=== PATIENT | female | born 1960 | race Two or more races ===

== ENCOUNTER 2020-12-03 10:59 | Outpatient (REF) | payer OTHER, SELFPAY ==
[2020-12-03 11:19] LABS: COVID-19 Test Negative (Negative)
== END 2020-12-03 11:00 | disposition home or self-care (01) ==
LOC: HO.LAB 10:59
PROVIDERS: Visit Provider Internal Medicine
DX: Z20.822 Contact with and (suspected) exposure to COVID-19 (principal)
CPT/HCPCS: 36415; 87635; C9803

== ENCOUNTER 2021-01-15 10:30 | Outpatient (REF) | payer OTHER, SELFPAY ==
--- NOTE | ~2021-01-15 | MM_ITS ---
EXAMINATION: MM SCREENING DIGITAL BREAST TOMOSYNTHESIS, BILATERAL CLINICAL INFORMATION: Screening. Asymptomatic. The lifetime risk of breast cancer based on the Tyrer-Cuzick Model is 5.4%. COMPARISON: Mammography: May 08, 2018 and studies dating back to September 27, 2012 TECHNIQUE: Digital breast tomosynthesis is performed in both the craniocaudal and mediolateral oblique views along with computer-aided detection (CAD). Synthesized 2D images are generated from the tomosynthesis. FINDINGS: The breasts are extremely dense, which lowers the sensitivity of mammography (ACR BI-RADS breast composition Category d). There are no significant masses, abnormal calcifications, or other abnormalities. MM/MM tomosynthesis screening BI IMPRESSION: There are no significant changes from prior study. ASSESSMENT: BI-RADS 1: Negative RECOMMENDATION: Routine annual mammography screening. This patient's information was entered into a reminder system with a target due date for their next mammogram.
== END 2021-01-15 10:31 | disposition home or self-care (01) ==
LOC: HO.MAMMO 10:30
PROVIDERS: Visit Provider Internal Medicine
DX: Z12.31 Encounter for screening mammogram for malignant neoplasm of breast (principal)
CPT/HCPCS: 77063; 77067

== ENCOUNTER 2021-03-06 09:40 | Outpatient (REF) | payer OTHER, SELFPAY ==
[2021-03-06 10:41] LABS: MANUAL DIFF FLAG NO
[2021-03-06 10:47] LABS: Basophils Percent Auto 0.5 % (0-2); Eosinophils Percent Auto 0.6 % (0-4); Hematocrit 39.2 % (37-47); Hemoglobin 12.8 g/dl (12.0-16.0); Imm Gran Abs Auto 0.01 X10*3/uL (0.00-0.03); Imm Gran Pct Auto 0.2 % (0.0-0.4); Lymphocytes Absolute Auto 2.8 X10*3/uL (1.2-4.9); Lymphocytes Percent Auto 43.6 % (20-40); Mean Corpuscular HGB Conc 32.7 g/dl (31.0-35.0); Mean Corpuscular Hemoglobin 27.3 pg (27.0-33.0); Mean Corpuscular Volume 83.6 fL (80-98); Mean Platelet Volume 9.3 fL (9.4-12.3); Monocytes Absolute Auto 0.5 X10*3/uL (0.1-1.2); Monocytes Percent Auto 8.5 % (2-11); Neutrophils Percent Auto 46.6 % (45-73); Platelet Count 244 X10*3/uL (160-400); Red Blood Count 4.69 X10*6/uL (4.20-5.50); Red Cell Distribution Width 13.2 % (11.0-16.0); White Blood Count 6.4 X10*3/uL (4.8-10.8)
[2021-03-06 11:11] LABS: Alanine Aminotransferase 16 U/L (0-31); Albumin Level 4.1 g/dL (3.5-5.0); Alkaline Phosphatase 83 U/L (39-117); Anion Gap 12 (12-20); Aspartate Amino Transferase 14 U/L (5-31); Bilirubin Total 0.4 mg/dL (0.0-1.0); Blood Urea Nitrogen 11 mg/dL (9-16); Calcium 9.3 mg/dL (8.4-10.2); Carbon Dioxide 26 mmol/L (22-29); Chloride 108 mmol/L (96-108); Cholesterol 227 mg/dL; Estimated Glomerular Filt Rate > 60; Glucose Fasting 84 mg/dL (60-99); HDL Cholesterol 69 mg/dL; LDL Cholesterol Calculated 147 mg/dl; Potassium 4.1 mmol/L (3.3-5.1); Sodium 142 mmol/L (135-145); Total Protein 6.8 g/dL (6.5-8.0); Triglycerides 56 mg/dL
[2021-03-10 12:56] LABS: Vitamin D 25-OH, D2 <4 ng/mL; Vitamin D 25-OH, D3 17 ng/mL; Vitamin D 25-OH, Total 17 ng/mL (30-100)
== END 2021-03-06 09:41 | disposition home or self-care (01) ==
LOC: HO.LAB 09:40
PROVIDERS: PCP Internal Medicine; Visit Provider Internal Medicine
DX: D64.9 Anemia, unspecified (principal); K21.9 Gastro-esophageal reflux disease without esophagitis; E66.3 Overweight; E78.5 Hyperlipidemia, unspecified; E55.9 Vitamin D deficiency, unspecified
CPT/HCPCS: 36415; 80053; 80061; 82306; 85025

== ENCOUNTER 2021-03-11 13:00 | Outpatient (RCR) | payer OTHER, SELFPAY ==
--- NOTE | 2021-03-11 13:33 | MHC.OT.DC ---
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 Pt continues to avoid heavy lifting , pushing ect. Her Quick DASH score is 22 pts. She is indep with her HEP. Goals at met Electronically Signed By: Vivian Scruggs OT CHT CLT Reviewed/agree with student documentation: N/A Therapist: Please Sign and return to therapist, thank you for your referral.
== END 2021-03-11 13:34 | disposition other institution (70) ==
LOC: HO.OT 13:00
PROVIDERS: PCP Internal Medicine; Visit Provider Nurse Practitioner Family
DX: G56.01 Carpal tunnel syndrome, right upper limb (principal)
CPT/HCPCS: 97110; 97165

== ENCOUNTER 2021-08-19 10:26 | Outpatient (REF) | payer OTHER, SELFPAY ==
[2021-08-19 14:24] LABS: Influenza A PCR NEGATIVE (Negative); Influenza B PCR NEGATIVE (Negative); Resp Syncy Virus RNA Qual PCR NEGATIVE (Negative); SARS COV2 PCR INHOUSE NEGATIVE (Negative)
== END 2021-08-19 10:27 | disposition home or self-care (01) ==
LOC: HO.LAB 10:26
PROVIDERS: Internal Medicine; Visit Provider Internal Medicine
DX: Z20.822 Contact with and (suspected) exposure to COVID-19 (principal); R09.89 Other specified symptoms and signs involving the circulatory and respiratory systems
CPT/HCPCS: 0241U

== ENCOUNTER 2021-09-11 15:03 | Outpatient (REF) | payer OTHER, SELFPAY ==
[2021-09-11 15:35] LABS: COVID-19 Test Negative (Negative)
== END 2021-09-11 15:04 | disposition home or self-care (01) ==
LOC: HO.LAB 15:03
PROVIDERS: Visit Provider Internal Medicine
DX: Z20.822 Contact with and (suspected) exposure to COVID-19 (principal)
CPT/HCPCS: 87635; C9803

== ENCOUNTER 2022-04-16 09:57 | Outpatient (REF) | payer OTHER, SELFPAY ==
--- NOTE | ~2022-04-16 | MM_ITS ---
EXAMINATION: BONE DENSITOMETRY CLINICAL INDICATION: Other specified disorders of bone density and structure, unspecified. COMPARISON: Baseline BD dated 01/02/2016. TECHNIQUE: Using a GIL[employer]PI DXA System (software version: 13.1) manufactured by [employer], dual-energy x-ray absorptiometry was performed of the lumbar spine and left hip. The images are of good technical quality. Summary results are attached. FINDINGS: AP SPINE L1-L4: Current: BMD 0.934 g/cm2, Z-score -1.0, T-score -2.1, osteopenia, 2.7% decrease from baseline (<5% change is not significant). Baseline: BMD 0.960 g/cm2. LEFT FEMUR, NECK: Current: BMD 0.817 g/cm2, Z-score -0.5, T-score -1.6, osteopenia. Baseline: BMD 0.892 g/cm2. LEFT FEMUR, TOTAL: Current: BMD 0.831 g/cm2, Z-score -0.6, T-score -1.4, osteopenia, 5.7% decrease from baseline (<5% change is not significant). Baseline: BMD 0.881 g/cm2. IDENTIFIED RISK FACTORS: Low calcium intake, menopause. HISTORY OF FRACTURE: None listed. MEDICATIONS: Vitamin D. MM/XR DEXA axial skeleton IMPRESSION: 1. DIAGNOSIS: Osteopenia based on the lowest T-score value of -2.1 in the lumbar spine applying World Health Organization criteria. 2. 10-YEAR FRACTURE RISK PREDICTION, FRAX: Major osteoporotic fracture (clinical spine, forearm, hip or shoulder) 4.6%. Hip fracture 0.4%. 3. Treatment Recommendations: NOF guidelines recommend consideration for treatment in postmenopausal women and men age 50 and older presenting with the following: -A hip or vertebral (clinical or morphometric) fracture. -T-score less than or equal to -2.5 at the femoral neck or spine after appropriate evaluation to exclude secondary causes. -Low bone mass at the hip or spine and a 10-year fracture probability by FRAX of greater than or equal to 3% for hip fracture or greater than or equal to 20% for major osteoporotic fracture based on the [place] adapted WHO algorithm. 4. Other Recommendations: All treatment decisions require clinical judgment and consideration of individual patient factors, including patient preferences, comorbidities, previous drug use, risk factors not captured in the FRAX model (e.g. frailty, falls, vitamin D deficiency, increased bone turnover, interval significant decline in bone density) and possible under or overestimation of fracture risk by FRAX. Additional medical evaluation for secondary cause of low bone mineral density may be appropriate. FUTURE SCAN RECOMMENDATION: People with diagnosed cases of osteoporosis or at high risk for fracture should have regular bone mineral density tests. For patients eligible for Medicare, routine testing is allowed once every 2 years. The testing frequency can be increased to one year for patients who have rapidly progressing disease, those who are receiving or discontinuing medical therapy to restore bone mass, or have additional risk factors.
--- NOTE | ~2022-04-16 | MM_ITS ---
EXAMINATION: MM SCREENING DIGITAL BREAST TOMOSYNTHESIS, BILATERAL CLINICAL INFORMATION: Screening. Asymptomatic. The lifetime risk of breast cancer based on the Tyrer-Cuzick Model is 6%. COMPARISON: Mammography: 01/15/2021, 05/08/2018, 01/02/2016 TECHNIQUE: Digital breast tomosynthesis is performed in both the craniocaudal and mediolateral oblique views along with computer-aided detection (CAD). Synthesized 2D images are generated from the tomosynthesis. FINDINGS: The breasts are heterogeneously dense, which may obscure small masses (ACR BI-RADS breast composition Category c). There is fibronodular parenchymal pattern similar to prior studies. No developing density or interval mass or architectural abnormality. No abnormal calcifications. The axilla and skin contours are unremarkable. No significant changes. MM/MM tomosynthesis screening BI IMPRESSION: No significant changes from prior exams. ASSESSMENT: BI-RADS 2: Benign RECOMMENDATION: Routine annual mammography screening. This patient's information was entered into a reminder system with a target due date for their next mammogram.
== END 2022-04-16 09:58 | disposition home or self-care (01) ==
LOC: HO.MAMMO 09:57
PROVIDERS: PCP Internal Medicine; Visit Provider Internal Medicine
DX: Z12.31 Encounter for screening mammogram for malignant neoplasm of breast (principal); Z13.820 Encounter for screening for osteoporosis; Z78.0 Asymptomatic menopausal state; M85.80 Other specified disorders of bone density and structure, unspecified site
CPT/HCPCS: 77063; 77067; 77080

== ENCOUNTER 2022-04-23 09:00 | Outpatient (REF) | payer OTHER, SELFPAY ==
--- NOTE | ~2022-04-23 | XR_ITS ---
EXAMINATION: XR LUMBOSACRAL SPINE CLINICAL INFORMATION: M54.50 - Low back pain, unspecified COMPARISON: CT abdomen and pelvis 03/19/2016. Bone densitometry 01/02/2016. TECHNIQUE: Three views of the lumbosacral spine. FINDINGS: There is normal lumbar segmentation with 5 nonrib-bearing lumbar vertebrae of normal height and normal lumbar lordosis. Decreased bony mineralization is suggested as also noted on bone densitometry 2016. There is no lumbar vertebral compression, spondylolisthesis, focal disc narrowing, erosive changes. No destructive process. The SI joints and visualized sacrum are unremarkable. XR/XR lumbar spine 2-3V IMPRESSION: -No vertebral compression, spondylolisthesis, disc narrowing, destructive process. -Decreased bony mineralization consistent with prior bone densitometry.
--- NOTE | 2022-04-23 09:18 | ECG_ITS ---
Test Reason : cp Blood Pressure : / mmHG Vent. Rate : 072 BPM Atrial Rate : 072 BPM P-R Int : 142 ms QRS Dur : 068 ms QT Int : 380 ms P-R-T Axes : 061 035 051 degrees QTc Int : 416 ms Normal sinus rhythm Nonspecific T wave abnormality Abnormal ECG When compared with ECG of 13-MAR-2016 15:55, Nonspecific T wave abnormality now evident in Lateral leads QT has shortened Referred By: Brenda Street Electronically Signed By:RADHA STEWART
[2022-04-23 10:28] LABS: Alanine Aminotransferase 33 U/L (0-31); Albumin Level 4.1 g/dL (3.5-5.0); Alkaline Phosphatase 91 U/L (39-117); Anion Gap 14 (12-20); Aspartate Amino Transferase 20 U/L (5-31); Bilirubin Total 0.4 mg/dL (0.0-1.0); Blood Urea Nitrogen 10 mg/dL (9-16); Calcium 9.2 mg/dL (8.4-10.2); Carbon Dioxide 26 mmol/L (22-29); Chloride 106 mmol/L (96-108); Cholesterol 223 mg/dL; Estimated Glomerular Filt Rate > 60; Glucose Fasting 102 mg/dL (60-99); HDL Cholesterol 56 mg/dL; LDL Cholesterol Calculated 143 mg/dl; Potassium 4.4 mmol/L (3.3-5.1); Sodium 142 mmol/L (135-145); Total Protein 7.2 g/dL (6.5-8.0); Triglycerides 124 mg/dL
[2022-04-23 10:49] LABS: Vitamin D 25-OH Total 20.8 ng/mL (>30)
== END 2022-04-23 09:01 | disposition home or self-care (01) ==
LOC: HO.LAB 09:00
PROVIDERS: PCP Internal Medicine; Visit Provider Internal Medicine
DX: Z00.00 Encounter for general adult medical examination without abnormal findings (principal); R07.9 Chest pain, unspecified; E55.9 Vitamin D deficiency, unspecified; M54.50 Low back pain, unspecified
CPT/HCPCS: 36415; 72100; 80053; 80061; 82306; 93005

== ENCOUNTER → 2022-09-07 12:22 | Outpatient (BNVA) | payer OTHER, SELFPAY | PROVIDERS: PCP Internal Medicine; Referring Provider Internal Medicine; Visit Provider Internal Medicine | DX: R94.31 Abnormal electrocardiogram [ECG] [EKG] (principal) | CPT/HCPCS: 93005 ==

== ENCOUNTER 2023-03-30 09:26 | Outpatient (REF) | payer OTHER, SELFPAY ==
[2023-03-30 09:42] LABS: MANUAL DIFF FLAG NO
[2023-03-30 10:03] LABS: Basophils Percent Auto 0.7 % (0-2); Eosinophils Absolute Auto 0.1 X10*3/uL (0.0-0.4); Eosinophils Percent Auto 1.1 % (0-4); Hematocrit 41.6 % (37.0-47.0); Hemoglobin 13.6 g/dl (12.0-16.0); Imm Gran Abs Auto 0.01 X10*3/uL (0.00-0.03); Imm Gran Pct Auto 0.2 % (0.0-0.4); Lymphocytes Absolute Auto 2.6 X10*3/uL (1.2-4.9); Lymphocytes Percent Auto 46.2 % (20-40); Mean Corpuscular HGB Conc 32.7 g/dl (31.0-35.0); Mean Corpuscular Hemoglobin 27.3 pg (27.0-33.0); Mean Corpuscular Volume 83.4 fL (80.0-98.0); Mean Platelet Volume 9.9 fL (9.4-12.3); Monocytes Absolute Auto 0.5 X10*3/uL (0.1-1.2); Monocytes Percent Auto 8.2 % (2-11); Neutrophils Absolute Auto 2.4 x10*3/uL (2.0-8.3); Neutrophils Percent Auto 43.6 % (45-73); Platelet Count 267 X10*3/uL (160-400); Red Blood Count 4.99 X10*6/uL (4.20-5.50); Red Cell Distribution Width 12.9 % (11.0-16.0); White Blood Count 5.5 X10*3/uL (4.8-10.8)
[2023-03-30 10:39] LABS: Alanine Aminotransferase 18 U/L (0-31); Albumin Level 4.1 g/dL (3.5-5.0); Alkaline Phosphatase 86 U/L (39-117); Anion Gap 11 (12-20); Aspartate Amino Transferase 16 U/L (5-31); Bilirubin Total 0.3 mg/dL (0.0-1.0); Blood Urea Nitrogen 11 mg/dL (9-16); Calcium 9.3 mg/dL (8.4-10.2); Carbon Dioxide 27 mmol/L (22-29); Chloride 108 mmol/L (96-108); Cholesterol 237 mg/dL (<200); Estimated Glomerular Filt Rate > 60; Glucose Fasting 91 mg/dL (60-99); HDL Cholesterol 54 mg/dL (>40); LDL Cholesterol Calculated 161 mg/dL (<100); Potassium 4.1 mmol/L (3.3-5.1); Sodium 142 mmol/L (135-145); Total Protein 7.4 g/dL (6.5-8.0); Triglycerides 111 mg/dL (<150)
[2023-03-30 10:56] LABS: Folate 10.5 ng/mL (> or = 4.0); Vitamin B12 494 pg/mL (200-900)
[2023-03-30 10:59] LABS: Thyroid Stimulating Hormone 0.98 uIU/mL (0.32-4.0); Vitamin D 25-OH Total 21.6 ng/mL (>30)
== END 2023-03-30 09:27 | disposition home or self-care (01) ==
LOC: HO.LAB 09:26
PROVIDERS: PCP Internal Medicine; Visit Provider Internal Medicine
DX: R07.9 Chest pain, unspecified (principal); E78.5 Hyperlipidemia, unspecified; G43.109 Migraine with aura, not intractable, without status migrainosus; E53.8 Deficiency of other specified B group vitamins; E55.9 Vitamin D deficiency, unspecified
CPT/HCPCS: 36415; 80053; 80061; 82306; 82607; 82746; 84443; 85025

== ENCOUNTER → 2023-05-04 09:49 | Outpatient (BNVA) | payer SELFPAY | PROVIDERS: PCP Internal Medicine; Visit Provider Physician Assistant | DX: Z02.79 Encounter for issue of other medical certificate (principal) ==

== ENCOUNTER 2023-05-24 11:33 | Outpatient (AMB) | payer OTHER, SELFPAY ==
--- NOTE | 2023-05-24 12:02 | AM.OFFWIN_ITS ---
Intake Vital Signs 05/24/23 12:03 Height 5 ft 3 in Weight 163 lb 4 oz BMI 28.9 BP 122/80 Blood Pressure Location Lt brachial Position Sitting Pulse 78 Pulse Source Pulse Oximeter Temp 98.0 F Temp Source Temporal Artery Scan Pulse Oximetry (%) 98 Intake Visit Reasons: EP Lump on lower back/Painful Intake Note: pt is here for c/o lump on lower back states its painful Patient Tobacco Use Status: Former Tobacco user Quit Date: 2006 Allergies levofloxacin [From LEVAQUIN] Allergy (Intermediate, Verified 12/23/22 11:21) HIVES,REDDNESS,ITCHINESS Do you need a note to return to daycare/school/sports/work: Yes HPI HPI Comments History of Present Illness Details 63-year-old female that presents for jayden k pain lump on her back. Been present for over a month. Denies numbness and tingling in the legs sounds seizure difficulties in the bathroom fevers chills or IVDU or history of long- term steroid use. [facility] Medical History Allergic rhinitis Carpal tunnel syndrome Fibromyalgia GERD (gastroesophageal reflux disease) Herpes zoster Hypovitaminosis D Migraines Mild recurrent major depression Overweight Pure hypercholesterolemia Renal calculi Surgical History History of carpal tunnel release History of kidney stones Family History Father No problems noted. Mother Hypertension Social History Housing: House Alcohol intake: former Year quit: 2006 Patient Tobacco Use Status: Former Tobacco user Quit Date: 2006 Years Smoked: 30 +/- e-Cigarette/Vaping Use: Never Used Second Hand Smoke Exposure: No service: No Current occupational status: unemployed Cognitive needs: No Hearing needs: No Vision needs: Yes Review of Systems Musc Reports back pain Physical Exam Vital Signs: Last Vital Signs Temp 98.0 F 05/24/23 12:03 Pulse 78 05/24/23 12:03 BP 122/80 05/24/23 12:03 Pulse Ox 98 05/24/23 12:03 BMI result Body Mass Index 28.9 Const General: healthy appearing, comfortable, no acute distress and alert Orientation/consciousness: patient oriented x3 Limitations: no limitations HEENT Head: Yes normal to inspection Ears: hearing grossly normal bilaterally Resp Effort & Inspection: normal respiratory effort and able to speak in complete sentences Cardio Rate: regular rate Back/Spine/Pelvis Other: No midline tenderness. Small palpable nontender lump lower back To the right of the spine freely mobile no overlying erythema or warmth Skin General skin exam: no rashes or lesions noted Neuro General: patient oriented x3 Extrem General: Yes normal to inspection Assessment & Plan Assessment & Plan (1) Back pain: Code(s): M54.9 - Dorsalgia, unspecified Qualifiers: Back pain location: back pain in unspecified location Chronicity: unspecified Back pain laterality: unspecified Qualified Code(s): M54.9 - Dorsalgia, unspecified Plan Suspect musculoskeletal versus fibromyalgia type pain. The patient has a history of fibromyalgia with regard to lump in the back resume muscle lipoma given overlying cellulitis no suspicion for infectious etiology. Will treat symptomatically Discharge instructions, follow up and treatment are discussed with patient in my usual fashion. Alternatives in treatment are also discussed. The patient will return for worsening symptoms or as needed. Advised that any labs/imaging ordered will be followed up on and contact made if further treatment needed. Counseled that patient's condition may require further evaluation and/or treatment. Symptoms of concern for worsening disorder discussed in detail in my customary manner. Patient does verbalize understanding of the plan, there are no apparent barriers to communication. The patient is given the opportunity to ask questions and have them answered to his/her satisfaction Coding Level of Care Code Est Pt Level 3 (52663) Diagnoses Back pain, unspecified back location, unspecified back pain laterality, unspecified chronicity M54.9 Back pain location: back pain in unspecified location Chronicity: unspecified Back pain laterality: unspecified
[2023-05-24 12:03] VITALS: BP 122/80; PULSE 78; TEMP 36.7; O2SAT 98; BMI 28.9
== END 2023-05-24 12:43 | disposition home or self-care (01) ==
PROVIDERS: PCP Internal Medicine; Visit Provider Physician Assistant
DX: M54.9 Dorsalgia, unspecified (principal)
CPT/HCPCS: 99213

== ENCOUNTER 2023-06-07 08:22 | Outpatient (AMB) | payer OTHER, SELFPAY ==
--- NOTE | 2023-06-07 08:28 | A.OFFPC_ITS ---
Vital Signs 3 06/07/23 08:29 Height 5 ft 3 in Weight 162 lb 6 oz BMI 28.8 BP 112/74 Blood Pressure Location Rt brachial Position Sitting Pulse 76 Pulse Source Pulse Oximeter Pulse Oximetry (%) 98 Oxygen Delivery Method Room Air Intake Visit Reasons: F/u ball on abdomen Intake Note: Patient is here today for a ball on the lower back. 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 Required: No Contract Manager: Not Required per policy Accompanied by: Self / Same As Patient Allergies levofloxacin [From LEVAQUIN] Allergy (Intermediate, Verified 06/07/23 08:43) HIVES,REDDNESS,ITCHINESS Medication List - Last Reconciled 06/07/23 by DARIEN Roach albuterol sulfate 90 mcg/actuation (Ventolin HFA) 2 puffs inhalation Q4-6H PRN calcium carbonate 1,200 mg (2 x 600 mg calcium (1,500 mg)) PO DAILY 90 days cholecalciferol (vitamin D3) 50 mcg PO DAILY 90 days cyclobenzaprine 10 mg PO TID PRN fluticasone propionate 50 mcg/actuation (Flonase Allergy Relief) 1 spray intranasal DAILY sumatriptan succinate 100 mg PO ONCE PRN 30 days Tobacco use date assessed: 06/07/23 Dental Screening Dental Screen Date: 06/07/23 Did you have a dental visit in the last 12 months?: Yes Did you have a dental problem in the last 6 months where you did not have access to dental care?: No Was dental information given to patient?: Patient has dentist HPI HPI Comments 2 History of Present Illness0 Details 63-year-old female past medical history significant for GERD, fibromyalgia, migraines, depression, osteopenia and mild asthma. Patient of Dr. Lee presents today for walk-in follow-up. 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 Patient presents today for follow-up on this states she noted the lump on her back 1 month ago patient states since then her lower mid back more to the right side. States has slightly increased in size. Patient has tender palpable mobile lump to right-sided lumbar region, No surrounding erythema, drainage, juarez not appear to be an abcess. Patient also requesting a referral to [facility] states she was previously followed there for her lumbar back pain however when she called to make a follow-up appointment she was recommended to get a new referral. Referral entered. [facility] Medical History Allergic rhinitis Carpal tunnel syndrome Fibromyalgia GERD (gastroesophageal reflux disease) Herpes zoster Hypovitaminosis D Migraines Mild recurrent major depression Overweight Pure hypercholesterolemia Renal calculi Surgical History History of carpal tunnel release History of kidney stones Family History Father No problems noted. Mother Hypertension Social History Housing: House Alcohol intake: former Year quit: 2006 Patient Tobacco Use Status: Former Tobacco user Quit Date: 2006 Years Smoked: 30 +/- e-Cigarette/Vaping Use: Never Used Second Hand Smoke Exposure: No service: No Current occupational status: unemployed Cognitive needs: No Hearing needs: No Vision needs: Yes Questionnaire Thrive Questionnaire Date Thrive assessed: 12/23/22 SHELBY-7 AMB Questionnaire SHELBY-7 Date SHELBY - 7 assessed: 08/12/22 Source: Developed by Drs. Garth Mao, Susan Fernandez, Km Callahan and colleagues, with an educational isiah from [employer]. Review of Systems Const Denies chills, Denies fatigue, Denies fever(s) and Denies poor appetite Eyes Denies no additional complaints ENT Reports Normal hearing present Card Denies chest pain, Denies syncope, Denies rapid heart rate and Denies dyspnea Resp Denies cough and Denies dyspnea GI Denies change in stool character, Denies constipation, Denies diarrhea, Denies nausea and Denies vomiting Denies urinary frequency, Denies dysuria and Denies urinary urgency Musc Reports other (lump to lower back. ) Neuro Reports Normal hearing present, Denies confusion and Denies syncope Psych Denies confusion Endo Denies fatigue Physical exam (Primary Care) Vital Signs: Last Vital Signs Pulse 76 06/07/23 08:29 BP 112/74 06/07/23 08:29 Pulse Ox 98 06/07/23 08:29 Oxygen Delivery Method Room Air 06/07/23 08:29 BMI result Body Mass Index 28.8 Tobacco/Smoking Status: Tobacco use Status Tobacco use date assessed 06/07/23 06/07/23 08:35 Patient Tobacco Use Status Former Tobacco user 06/07/23 08:35 Tobacco use type 03/30/23 09:26 e-Cigarette/Vaping Use Never Used 06/07/23 08:35 Thrive Assessment: Date of Thrive Assessment Date Thrive assessed 12/23/22 06/07/23 08:35 Const General: No confusion Orientation/consciousness: No confusion HENMT Head: Yes normocephalic and Yes atraumatic Eyes Conjunctivae: conjunctivae normal Chest Chest palpation & inspection: normal inspection of the chest Resp Effort & Inspection: normal respiratory effort Auscultation: clear to auscultation bilaterally, no crackles, no rhonchi and no wheezes Cardio Rate: regular rate Rhythm: regular rhythm Heart sounds: S1 normal heart sound present and S2 normal heart sound present GI Inspection: Yes normal to inspection Back/Spine/Pelvis Back/spine/pelvis image: 2 1. Approximately 0.25 cm x0.25cm mobile palpable mass. No erythema, edema drainage noted. Tender on palpation Neuro General: No confusion Cranial nerves: Yes Normal hearing present Extrem General: No edema Assessment and Plan Assessment & Plan (1) Lumbar pain: Code(s): M54.50 - Low back pain, unspecified Plan: Patient requesting referral to [facility], referral entered. Refill given on cyclobenzaprine. (2) Lump of skin of back: Code(s): R22.2 - Localized swelling, mass and lump, trunk Plan: Ultrasound ordered to further evaluate. Plan Keep scheduled follow-up with PCP or follow-up sooner needed. Orders: Orders 2 US extremity nonvascular Today R22.2 - Localized swelling, mass and lump, trunk Referrals 2 Physiatry Referral M54.50 - Low back pain, unspecified Medications: Refilled 2 fluticasone propionate 50 mcg/actuation (Flonase Allergy Relief) administer into each nostril 1 spray intranasal DAILY 100 mL 0RF J31.0 - Chronic rhinitis calcium carbonate 1,200 mg (2 x 600 mg calcium (1,500 mg)) PO DAILY 180 tabs 1RF 90 days sumatriptan succinate do not exceed 2 doses per 24 hrs 100 mg PO ONCE PRN 9 tabs 2RF migraine headache 30 days G43.909 - Migraine, unspecified, not intractable, without status migrainosus albuterol sulfate 90 mcg/actuation (Ventolin HFA) 2 puffs inhalation Q4-6H PRN 18 ea 0RF for wheezing R05.8 - Other specified cough cholecalciferol (vitamin D3) 50 mcg PO DAILY 90 caps 1RF 90 days cyclobenzaprine 10 mg PO TID PRN 90 tabs 0RF muscle spasm M62.838 - Other muscle spasm Coding Level of Care Code Est Pt Level 3 (63988) Diagnoses Lumbar pain M54.50 Lump of skin of back R22.2
[2023-06-07 08:29] VITALS: BP 112/74; PULSE 76; O2SAT 98; BMI 28.8
== END 2023-06-07 09:59 | disposition home or self-care (01) ==
PROVIDERS: PCP Internal Medicine; Visit Provider Nurse Practitioner Family
DX: M54.50 Low back pain, unspecified (principal); F33.0 Major depressive disorder, recurrent, mild; R22.2 Localized swelling, mass and lump, trunk; K21.9 Gastro-esophageal reflux disease without esophagitis; Z87.442 Personal history of urinary calculi
CPT/HCPCS: 99213

== ENCOUNTER 2023-07-21 14:23 | Outpatient (REF) | payer OTHER, SELFPAY ==
--- NOTE | ~2023-07-21 | US_ITS ---
EXAMINATION: US ABDOMEN LIMITED CLINICAL INFORMATION: Localized swelling, mass and lump, trunk. COMPARISON: CT abdomen and pelvis 03/19/2016. TECHNIQUE: Real-time imaging of the right lower back. FINDINGS: In the area of clinical concern there is an avascular 2.6 x 0.6 x 1.3 cm mass which is solid, and well defined. Echogenicity is similar to the surrounding fat and I suspect that this represents a lipoma. No discrete posterior mass is seen on the 2016 CT scan. US/US abdomen limited IMPRESSION: Probable lipoma.
== END 2023-07-21 14:24 | disposition home or self-care (01) ==
LOC: HO.US 14:23
PROVIDERS: PCP Internal Medicine; Visit Provider Nurse Practitioner Family
DX: R22.2 Localized swelling, mass and lump, trunk (principal)
CPT/HCPCS: 76705

== ENCOUNTER 2023-07-28 15:33 | Outpatient (AMB) | payer OTHER, SELFPAY ==
--- NOTE | 2023-07-28 15:40 | A.OFFPC_ITS ---
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: No Accompanied by: Self / Same As Patient Allergies levofloxacin [From LEVAQUIN] Allergy (Intermediate, Verified 07/28/23 15:46) HIVES,REDDNESS,ITCHINESS Medication List - Last Reconciled 07/28/[address] MD albuterol sulfate 90 mcg/actuation (Ventolin HFA) 2 puffs inhalation Q4-6H PRN calcium carbonate 1,200 mg (2 x 600 mg calcium (1,500 mg)) PO DAILY 90 days cholecalciferol (vitamin D3) 50 mcg PO DAILY 90 days cyclobenzaprine 10 mg PO TID PRN fluticasone propionate 50 mcg/actuation (Flonase Allergy Relief) 1 spray intranasal DAILY sumatriptan succinate 100 mg PO ONCE PRN 30 days Tobacco use date assessed: 06/07/23 Dental Screening Dental Screen Date: 07/28/23 Did you have a dental visit in the last 12 months?: No Did you have a dental problem in the last 6 months where you did not have access to dental care?: No Was dental information given to patient?: Patient has dentist HPI HPI Comments History of Present Illness Details This is a 63-year-old female with migraines, pure hypercholesterolemia and low vitamin-D that complains of elevated blood pressure at home with multiple times been over 140/90. I will start her on low-dose hydrochlorothiazide for her blood pressure. Migraines stable with sumatriptan as needed. Cholesterol is elevated but does not require any statins and low- cholesterol diet was advised. Vitamin-D supplements for low vitamin-D. [facility] Medical History (Updated 07/28/23 @ 15:[address] MD) Herpes zoster Carpal tunnel syndrome Mild recurrent major depression Migraines Hypovitaminosis D Pure hypercholesterolemia Allergic rhinitis Renal calculi Fibromyalgia Overweight GERD (gastroesophageal reflux disease) Surgical History History of carpal tunnel release History of kidney stones Family History Father No problems noted. Mother Hypertension Social History Housing: House Alcohol intake: former Year quit: 2006 Patient Tobacco Use Status: Former Tobacco user Quit Date: 2006 Years Smoked: 30 +/- e-Cigarette/Vaping Use: Never Used Second Hand Smoke Exposure: No service: No Current occupational status: unemployed Cognitive needs: No Hearing needs: No Vision needs: Yes Questionnaire Thrive Questionnaire Date Thrive assessed: 12/23/22 SHELBY-7 AMB Questionnaire SHELBY-7 Date SHELBY - 7 assessed: 08/12/22 Source: Developed by Drs. Garth Mao, Susan Fernandez, Km Callahan and colleagues, with an educational isiah from [employer]. Review of Systems Const All systems reviewed & are unremarkable except as noted in HPI and below Eyes Reports no additional complaints, Denies change in vision and Denies other visual disturbances Card Denies chest pain at rest, Denies chest pain with activity, Denies edema, Denies irregular heart rhythm, Denies claudication, Denies dyspnea, Denies dyspnea on exertion, Denies orthopnea, Denies paroxysmal nocturnal dyspnea and Denies slow heart rate Resp Denies cough, Denies dyspnea and Denies dyspnea on exertion GI Denies abdominal pain, Denies change in bowel habits, Denies excessive flatus, Denies nausea and Denies vomiting Denies urinary incontinence, Denies urinary hesitancy and Denies urinary urgency Musc Denies abnormal gait, Denies atrophy, Denies deformity and Denies limited range of motion Skin/Breast Denies bleeding lesions, Denies changing lesions and Denies rash Neuro Denies abnormal gait, Denies behavioral changes and Denies lack of coordination Psych Denies behavioral changes Physical exam (Primary Care) Vital Signs: Last Vital Signs BP 130/70 07/28/23 15:41 BMI result Body Mass Index 29.0 Tobacco/Smoking Status: Tobacco use Status Tobacco use date assessed 06/07/23 07/28/23 15:44 Patient Tobacco Use Status Former Tobacco user 07/28/23 15:44 Tobacco use type 03/30/23 09:26 e-Cigarette/Vaping Use Never Used 07/28/23 15:44 Thrive Assessment: Date of Thrive Assessment Date Thrive assessed 12/23/22 07/28/23 15:44 Eyes General: appearance normal, both eyes and all related structures Eyelids: Yes eyelids normal Conjunctivae: conjunctivae normal Neck Neck: Yes normal visual inspection and Yes supple Resp Effort & Inspection: normal respiratory effort Auscultation: clear to auscultation bilaterally Cardio Jugular venous distension: no JVD Rate: regular rate Rhythm: regular rhythm Heart sounds: S1 normal heart sound present and S2 normal heart sound present Extrem General: Yes full ROM Office Procedures Flu Questionnaire Does the patient have a severe egg allergy?: No Immunizations flu vacc [id number] 6mos up(PF) 60 mcg(15 mcgx4)/0.5 mL IM syringe Performing Provider: Brenda Street MD [facility] Documented (not given) by: LISANDRO Rodriguez on 07/28/23 15:55 Reason Not Given: Not Given Assessment and Plan Assessment & Plan (1) Essential hypertension: Code(s): I10 - Essential (primary) hypertension Plan: Start hydrochlorothiazide. Blood pressure goal is equal or less than 130/80. (2) Mild asthma: Code(s): J45.909 - Unspecified asthma, uncomplicated Plan: Continue longstanding inhaler. Use rescue inhaler as needed. (3) Migraines: Code(s): G43.909 - Migraine, unspecified, not intractable, without status migrainosus Qualifiers: Migraine type: with aura Status migrainosus presence: without status migrainosus Intractability: not intractable Qualified Code(s): G43.109 - Migraine with aura, not intractable, without status migrainosus Plan: Continue sumatriptan as needed. (4) Pure hypercholesterolemia: Code(s): E78.00 - Pure hypercholesterolemia, unspecified Plan: Start low-cholesterol diet. No need for statins. (5) Hypovitaminosis D: Code(s): E55.9 - Vitamin D deficiency, unspecified Plan: Continue vitamin-D supplements. Orders: Orders Vitamin D 25-OH Total 4 Months E55.9 - Vitamin D deficiency, unspecified Lipid Panel 4 Months E78.5 - Hyperlipidemia, unspecified Comprehensive [place]. Panel Fast 4 Months G43.109 - Migraine with aura, not intractable, without status migrainosus Thyroid Stimulating Hormone 4 Months R41.3 - Other amnesia Influenza [id number] Immunization 07/28/23 Z23 - Encounter for immunization Medications: New hydrochlorothiazide 12.5 mg PO DAILY 90 days 90 tabs 0RF I10 - Essential (primary) hypertension Coding Level of Care Code Est Pt Level 4 (08020) Diagnoses Essential hypertension I10 Mild asthma J45.909 Migraine with aura and without status migrainosus, not intractable G43.109 Migraine type: with aura Status migrainosus presence: without status migrainosus Intractability: not intractable Pure hypercholesterolemia E78.00 Hypovitaminosis D E55.9 Time Spent (min) 21
[2023-07-28 15:41] VITALS: BP 130/70; BMI 29.0
== END 2023-07-28 15:54 | disposition home or self-care (01) ==
PROVIDERS: PCP Internal Medicine; Visit Provider Internal Medicine
DX: I10 Essential (primary) hypertension (principal); J45.909 Unspecified asthma, uncomplicated; G43.109 Migraine with aura, not intractable, without status migrainosus; E78.00 Pure hypercholesterolemia, unspecified; E55.9 Vitamin D deficiency, unspecified
CPT/HCPCS: 99214

== ENCOUNTER 2023-10-26 10:04 | Outpatient (AMB) | payer OTHER, SELFPAY ==
--- NOTE | 2023-10-26 10:22 | A.OFFVIS_ITS ---
Intake Vital Signs 10/26/23 10:31 Height 5 ft 3 in Weight 164 lb 4 oz BMI 29.1 BP 152/72 H Blood Pressure Location Lt brachial Position Sitting Pulse 68 Intake Visit Reasons: Lipoma of back Intake Note: Patient is seen in office for evaluation and treatment of the lower back lipoma. 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 Operator Required: No Accompanied by: Self / Same As Patient Allergies levofloxacin [From LEVAQUIN] Allergy (Intermediate, Verified 10/26/23 10:30) HIVES,REDDNESS,ITCHINESS Medication List - Last Reconciled 10/26/23 by José Luis Metcalf MD albuterol sulfate 90 mcg/actuation (Ventolin HFA) 2 puffs inhalation Q4-6H PRN calcium carbonate 1,200 mg (2 x 600 mg calcium (1,500 mg)) PO DAILY 90 days cholecalciferol (vitamin D3) 50 mcg PO DAILY 90 days cyclobenzaprine 10 mg PO TID PRN fluticasone propionate 50 mcg/actuation (Flonase Allergy Relief) 1 spray intranasal DAILY hydrochlorothiazide 12.5 mg PO DAILY 90 days sumatriptan succinate 100 mg PO ONCE PRN 30 days HPI Lipoma of back HPI Details [age] year old female referred for a mass on the lower back. She says that she has noticed this for a few months now. She feels that this has been increasing in size and can be painful and uncomfortable. She denies any skin changes or any discharge. [facility] Medical History Subcutaneous mass of back Herpes zoster Carpal tunnel syndrome Mild recurrent major depression Migraines Hypovitaminosis D Pure hypercholesterolemia Allergic rhinitis Renal calculi Fibromyalgia Overweight GERD (gastroesophageal reflux disease) Surgical History History of carpal tunnel release History of kidney stones Family History Father No problems noted. Mother Hypertension Social History Housing: House Alcohol intake: former Year quit: 2006 Patient Tobacco Use Status: Former Tobacco user Quit Date: 2006 Years Smoked: 30 +/- e-Cigarette/Vaping Use: Never Used Second Hand Smoke Exposure: No service: No Current occupational status: unemployed Cognitive needs: No Hearing needs: No Vision needs: Yes Review of Systems Const Denies chills and Denies fever(s) Card Denies chest pain, Denies dyspnea and Denies dyspnea on exertion Resp Denies cough, Denies dyspnea and Denies dyspnea on exertion GI Denies hematochezia and Denies change in bowel habits Denies hematuria Musc Denies back pain and Denies limited range of motion Neuro Denies focal weakness and Denies convulsions Psych Denies depression and Denies mood swings Physical Exam Const General: comfortable and no acute distress Orientation/consciousness: patient oriented x3 Neck Neck: Yes no lymphadenopathy Resp Auscultation: clear to auscultation bilaterally Cardio Rhythm: regular rhythm GI Palpation (GI): Soft to palpation, nontender and no guarding Back/Spine/Pelvis Other: Deep subcutaneous mass, about 2 cm in diameter, fairly mobile and well-defined Neuro General: patient oriented x3 Assessment & Plan Assessment & Plan (1) Subcutaneous mass of back: Code(s): R22.2 - Localized swelling, mass and lump, trunk Plan: She has what appears to be a deep subcutaneous mass, well-defined, about 2 cm in diameter in the lower back. I explained to her the technique of excision. I reviewed the risks including but not limited to bleeding, infections, poor healing, as well as the benefits and alternatives. She wants to proceed with excision under anesthesia. This will therefore be done in the operating room. Coding Level of Care Code New Pt Level 3 (17852) Diagnoses Subcutaneous mass of back R22.2
[2023-10-26 10:31] VITALS: BP 152/72; PULSE 68; BMI 29.1
== END 2023-10-26 10:40 | disposition home or self-care (01) ==
PROVIDERS: PCP Internal Medicine; Visit Provider Surgery
DX: R22.2 Localized swelling, mass and lump, trunk (principal)
CPT/HCPCS: 99203

== ENCOUNTER → 2023-10-26 10:04 | Outpatient (BNVA) | payer OTHER, SELFPAY | PROVIDERS: PCP Internal Medicine; Visit Provider Surgery | DX: R22.2 Localized swelling, mass and lump, trunk (principal) | CPT/HCPCS: 99202 ==

== ENCOUNTER 2023-12-01 14:57 | Outpatient (AMB) | payer OTHER, SELFPAY ==
--- NOTE | 2023-12-01 15:03 | A.OFFPC_ITS ---
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 Accompanied by: Self / Same As Patient Allergies levofloxacin [From LEVAQUIN] Allergy (Intermediate, Verified 12/01/23 15:26) HIVES,REDDNESS,ITCHINESS Medication List - Last Reconciled 12/01/[address] MD albuterol sulfate 90 mcg/actuation (Ventolin HFA) 2 puffs inhalation Q4-6H PRN calcium carbonate 1,200 mg (2 x 600 mg calcium (1,500 mg)) PO DAILY 90 days cholecalciferol (vitamin D3) 50 mcg PO DAILY 90 days cyclobenzaprine 10 mg PO TID PRN fluticasone propionate 50 mcg/actuation (Flonase Allergy Relief) 1 spray intranasal DAILY hydrochlorothiazide 12.5 mg PO DAILY 90 days meloxicam 15 mg PO DAILY 90 days sumatriptan succinate 100 mg PO ONCE PRN 30 days Tobacco use date assessed: 12/01/23 Dental Screening Dental Screen Date: 12/01/23 Did you have a dental visit in the last 12 months?: Yes Did you have a dental problem in the last 6 months where you did not have access to dental care?: No Was dental information given to patient?: Patient has dentist HPI HPI Comments History of Present Illness Details This is a 63-year-old female that comes for her physical exam. Last mammogram was 2021 and I will order another mammogram. Last colonoscopy was 2016 and he was normal. Last bone density was April 2022. Last Pap smear was 2018 and I will refer her to OBGYN for that matter. Has history of nephrolithiasis and complains of right costovertebral angle tenderness. X-ray KUB will be done. Also complains of heartburn and I will order upper GI series. Used to be on omeprazole but cause insomnia in her and she has to discontinue it. We will order famotidine. [facility] Medical History (Updated 12/01/23 @ 15:[address] MD) Subcutaneous mass of back Herpes zoster Carpal tunnel syndrome Mild recurrent major depression Migraines Hypovitaminosis D Pure hypercholesterolemia Allergic rhinitis Renal calculi Fibromyalgia Overweight GERD (gastroesophageal reflux disease) Surgical History History of carpal tunnel release History of kidney stones Family History (Updated 12/01/23 @ 15:[address] MD) Father No problems noted. Mother Hypertension Congestive heart failure ESRD on hemodialysis Social History Housing: House Alcohol intake: former Year quit: 2006 Patient Tobacco Use Status: Former Tobacco user Quit Date: 2006 Years Smoked: 30 +/- e-Cigarette/Vaping Use: Never Used Second Hand Smoke Exposure: No service: No Current occupational status: unemployed Cognitive needs: No Hearing needs: No Vision needs: Yes Questionnaire PHQ-9 Over the last 2 weeks, how often have you been bothered by any of the following problems? 1. Little interest or pleasure in doing things: not at all 2. Feeling down, depressed, or hopeless: not at all 3. Trouble falling or staying asleep, or sleeping too much: not at all 4. Feeling tired or having little energy: not at all 5. Poor appetite or overeating: not at all 6. Feeling bad about yourself - or that you are a failure or have let yourself or your family down: not at all 7. Trouble concentrating on things, such as reading the newspaper or watching television: not at all 8. Moving or speaking so slowly that other people could have noticed. Or the opposite - being so fidgety or restless that you have been moving around a lot more than usual: not at all 9. Thoughts that you would be better off or of hurting yourself in some way: not at all Total score: 0 Depression Screening Interpretation: Negative Depression Screening Done: Yes 45413 - PHQ-9 Billing: Yes Source: Developed by Drs. Garth Mao, Susan Fernandez, Km Callahan and colleagues, with an educational isiah from [employer]. Thrive Questionnaire Date Thrive assessed: 12/01/23 I am a: Patient What is your living situation today?: I have a steady place to live Within the past 12 months, did the food you bought not last and you didn't have the money to get more?: Never true Within the past 12 months, did you worry whether your food would run out before you got money to buy more?: Never true Do you have trouble paying for medicines?: No Do you have trouble getting transportation to medical appointments?: No Do you have trouble paying your heating and electricity bill?: No Do you have trouble taking care of your child, family member or friend?: No Do you have trouble with day-to-day activities such as bathing, preparing meals, shopping, managing finances, etc.?: No Are you currently unemployed and looking for a job?: No Are you interested in more education?: No Please select the resources that you would like help with: None Currently or been in a relationship where the following occur: no concerns reported THRIVE Score: 0 AUDIT C Alcohol Use Questionnaire (AUDIT-C) 1. How often do you have a drink containing alcohol?: Never Total Score: 0 Score Reviewed/Action Taken: No SHELBY-7 AMB Questionnaire SHELBY-7 Date SHELBY - 7 assessed: 12/01/23 Feeling nervous, anxious, or on edge: 0 = Not at all Not being able to stop or control worryin = Not at all Worrying too much about different things: 0 = Not at all Trouble relaxin = Not at all Being so restless that it is hard to sit still: 0 = Not at all Becoming easily annoyed or irritable: 0 = Not at all Feeling afraid as if something awful might happen: 0 = Not at all Total SHELBY-7 score (0-4 normal; 5-9 mild; 10-14 moderate; 15-21 severe): 0 Source: Developed by Drs. Garth Mao, Susan Fernandez, Km Callahan and colleagues, with an educational isiah from [employer]. SHELBY-7 Assessment Billing SHELBY-7 Assessment Tool: SHELBY-7 Assessment 68428 Review of Systems Const All systems reviewed & are unremarkable except as noted in HPI and below Eyes Reports no additional complaints, Denies change in vision and Denies other visual disturbances Card Denies chest pain at rest, Denies chest pain with activity, Denies edema, Denies irregular heart rhythm, Denies claudication, Denies dyspnea, Denies dyspnea on exertion, Denies orthopnea, Denies paroxysmal nocturnal dyspnea and Denies slow heart rate Resp Denies cough, Denies dyspnea and Denies dyspnea on exertion GI Denies abdominal pain, Denies change in bowel habits, Denies excessive flatus, Denies nausea and Denies vomiting Denies urinary incontinence, Denies urinary hesitancy and Denies urinary urgency Physical exam (Primary Care) Vital Signs: Last Vital Signs BP 112/64 12/01/23 15:04 BMI result Body Mass Index 29.0 Tobacco/Smoking Status: Tobacco use Status Tobacco use date assessed 12/01/23 12/01/23 15:09 Patient Tobacco Use Status Former Tobacco user 12/01/23 15:09 Tobacco use type 03/30/23 09:26 e-Cigarette/Vaping Use Never Used 12/01/23 15:09 PHQ-9: PHQ-9 Score PHQ-9: Total score 0 12/01/23 15:09 Depression Screening Interpretation: Negative Thrive Assessment: Date of Thrive Assessment Date Thrive assessed 12/01/23 12/01/23 15:09 Currently or been in a relationship where the following occur: no concerns reported Const Orientation/consciousness: patient oriented x3 HENMT Head: Yes normal to inspection, Yes normocephalic and Yes atraumatic Ears: external ears normal Eyes General: appearance normal, both eyes and all related structures Eyelids: Yes eyelids normal Conjunctivae: conjunctivae normal Neck Neck: Yes normal visual inspection and Yes supple Resp Effort & Inspection: normal respiratory effort Auscultation: clear to auscultation bilaterally Cardio Jugular venous distension: no JVD Rate: regular rate Rhythm: regular rhythm Heart sounds: S1 normal heart sound present and S2 normal heart sound present GI Inspection: Yes normal to inspection Palpation (GI): Soft to palpation and nontender Auscultation: normal bowel sounds Skin General skin exam: no rashes or lesions noted Neuro General: patient oriented x3 and no focal motor deficits Extrem General: Yes full ROM Psych Appearance: grossly normal Assessment and Plan Assessment & Plan (1) Physical exam: Code(s): Z00.00 - Encounter for general adult medical examination without abnormal findings Plan: Repeat in a year. Orders: Orders [place] upper GI series Today K21.9 - Gastro-esophageal reflux disease without esophagitis XR KUB Today N20.0 - Calculus of kidney Comprehensive [place]. Panel Fast Today Z00.00 - Encounter for general adult medical examination without abnormal findings MM screening mammo BI Today Z12.31 - Encounter for screening mammogram for malignant neoplasm of breast XR DEXA axial skeleton Today N95.9 - Unspecified menopausal and perimenopausal disorder Lipid Panel Today Z00.00 - Encounter for general adult medical examination without abnormal findings Referrals CLINICAL BIOSTATISTICIAN Referral Z12.4 - Encounter for screening for malignant neoplasm of cervix Medications: New famotidine 20 mg PO DAILY 90 days PRN 90 tabs 1RF heartburn Coding Level of Care Code Est Pt Prev Care 40-64y(06042) Diagnoses Physical exam Z00.00 Additional Codes SHELBY-7 Assessment Billing - SHELBY-7 Assessment Tool: SHELBY-7 Assessment 38137 ([id number]) Time Spent (min) 30
[2023-12-01 15:04] VITALS: BP 112/64; BMI 29.0
== END 2023-12-01 15:38 | disposition home or self-care (01) ==
PROVIDERS: PCP Internal Medicine; Visit Provider Internal Medicine
DX: Z00.00 Encounter for general adult medical examination without abnormal findings (principal)
CPT/HCPCS: 99396

== ENCOUNTER 2023-12-16 09:32 | Day surgery (SDC) | payer OTHER, SELFPAY ==
[2023-12-14 16:38] VITALS: BMI 29.0
[2023-12-16] VITALS (7 sets, daily range): BP systolic 118–147; BP diastolic 49–66; PULSE 63–93; RESP 16; TEMP 36.4–36.5; O2SAT 95–99; BMI 29.6
[2023-12-16] MEDS: Lactated Ringers 1,000 ML 100 ML IVCONT (10:22)
--- NOTE | 2023-12-16 11:20 | HO.ANESPROP2 ---
Documented by User: Jamee Norton NP 12/14/23 14:38 HPI - Anesthesia Eval Consult details Narrative: 63yo F for Excision of Mass on lower Back PMFSH Active Problems Active Problems: All Active Problems Screening for cervical cancer (Acute) Subcutaneous mass of back (Acute) Lipoma (Acute) Essential hypertension (Acute) Memory loss (Acute) Lump of skin of back (Acute) Mild asthma (Acute) Dry cough (Acute) Rhinitis (Acute) Post herpetic neuralgia (Acute) Abnormal EKG (Acute) Chest pain (Acute) Osteopenia (Acute) Lumbar pain (Acute) Physical exam (Acute) Foot pain (Acute) Carpal tunnel syndrome (Acute) Bilateral shoulder pain (Acute) Back pain (Acute) Neck pain (Acute) Muscle spasms of neck (Acute) Migraines (Acute) Hypovitaminosis D (Acute) Pure hypercholesterolemia (Acute) Allergic rhinitis (Acute) Renal calculi (Acute) Fibromyalgia (Acute) Overweight (Acute) GERD (gastroesophageal reflux disease) (Acute) Past Medical History Medical History Subcutaneous mass of back Herpes zoster Carpal tunnel syndrome Mild recurrent major depression Migraines Hypovitaminosis D Pure hypercholesterolemia Allergic rhinitis Renal calculi Fibromyalgia Overweight GERD (gastroesophageal reflux disease) Family History Family History (Updated 12/01/23 @ 15:[address] MD) Father No problems noted. Mother Hypertension Congestive heart failure ESRD on hemodialysis Surgical History Surgical History History of carpal tunnel release History of kidney stones Social History Social History Housing: House Alcohol intake: former Year quit: 2006 Patient Tobacco Use Status: Former Tobacco user Quit Date: 2006 Years Smoked: 30 +/- e-Cigarette/Vaping Use: Never Used Second Hand Smoke Exposure: No Use of substances other than those prescribed or required for medical reasons: No Are you DNR?: No Advance Directives: No Advance Directives Information Provided: Yes service: No Current occupational status: unemployed Cognitive needs: No Hearing needs: No Vision needs: Yes Meds Allergies Allergy/AdvReac Type Severity Reaction Status Date / Time levofloxacin [From LEVAQUIN] Allergy Intermediate HIVES,REDDN Verified 12/01/23 15:26 ESS,ITCHINE SS Assessment and Plan Assessment Anesthesia Assessment: Chart Reviewed Documented by User: Keri Maradiaga DO 12/16/23 11:22 [facility] Past Medical History Medical History Subcutaneous mass of back Herpes zoster Carpal tunnel syndrome Mild recurrent major depression Migraines Hypovitaminosis D Pure hypercholesterolemia Allergic rhinitis Renal calculi Fibromyalgia Overweight GERD (gastroesophageal reflux disease) Family History Family History (Updated 12/01/23 @ 15:[address] MD) Father No problems noted. Mother Hypertension Congestive heart failure ESRD on hemodialysis Family history of problems with anesthesia: No Surgical History Surgical History History of carpal tunnel release History of kidney stones History of Problems with Anesthesia: No Social History Social History Housing: House Alcohol intake: former Year quit: 2006 Patient Tobacco Use Status: Former Tobacco user Quit Date: 2006 Years Smoked: 30 +/- e-Cigarette/Vaping Use: Never Used Second Hand Smoke Exposure: No Use of substances other than those prescribed or required for medical reasons: No Are you DNR?: No Advance Directives: No Advance Directives Information Provided: Yes service: No Current occupational status: unemployed Cognitive needs: No Hearing needs: No Vision needs: Yes Meds Allergies Allergy/AdvReac Type Severity Reaction Status Date / Time levofloxacin [From LEVAQUIN] Allergy Intermediate FEDERICO PARKSDN Verified 12/01/23 15:26 ESS,ITCHINE SS Exam Exam Date and Time: December 16, 2023 1120 Height,Weight and Vital Signs: Height 5 ft 3 in Weight 75.75 kg Vital Signs Temperature 97.7 F 12/16/23 10:04 Pulse Rate 70 12/16/23 10:04 Respiratory Rate 16 12/16/23 10:04 Blood Pressure 131/63 12/16/23 10:04 Pulse Oximetry 95 12/16/23 10:04 Oxygen Delivery Method Room Air 12/16/23 10:04 Temperature 97.7 F 12/16/23 10:04 Pulse Rate 70 12/16/23 10:04 Respiratory Rate 16 12/16/23 10:04 Blood Pressure 131/63 12/16/23 10:04 Pulse Oximetry 95 12/16/23 10:04 Oxygen Delivery Method Room Air 12/16/23 10:04 Airway Mallampati Class: II TM Dist: >3cm Neck ROM: Full Loose/Missing/Broken Teeth: Yes (poor dentition - multiple missing and broken teeth) Heart: S1S2 Lungs: CTAB Assessment and Plan Assessment Anesthesia Assessment: Anesthesia Plan Discussed and Chart Reviewed Final Anesthetic Review Family History of Problems with Anesthesia: No History of Problems with Anesthesia: No NPO: Yes ASA Class: II Final Preanesthetic Review: No Changes in Pt Med Stat, Meds/Allgs Chart Reviewed, Consent Obtained/Reviewed and Anes Risks/Benef Reviewed Patient Risk: Low Procedure Risk: Low Anesthetic Plan Anesthetic Plan: GA and Agree w/ Assess. and Plan Disposition: Standard PACU
--- NOTE | 2023-12-16 11:38 | MHC.SHP ---
Pre-Procedural Eval Section A - 24 Hr Update-Section A only Date of Service: 12/16/23 Section B - Complete if H&P > 30 days Chief Complaint: Localized swelling, mass and lump, trunk Details of Present Illness: Has subcutaneous baths on the lower back Relevant Social History: None Present Medications: see Short Stay Collaborative assessment Medical History: Significant History (Asthma hypertension chronic back) Allergies: Allergies Allergy/AdvReac Type Severity Reaction Status Date / Time levofloxacin [From LEVAQUIN] Allergy Intermediate HIVES,REDDN Verified 12/01/23 15:26 ESS,ITCHINE SS Review of Systems Sugical H&P ROS: Negative: Constitution, Cardiovascular, Respiratory, Neurological, Psychiatric, Hem-Onc, Allergic/Immunologic, Gastrointestinal, Genitourinary, Musculoskeletal, Integumentary, Endocrine and Eyes/Ears/Nose/Throat Exam Surgical H&P Exam: Normal: HEENT, Normal: Heart, Normal: Lungs, Normal: Extremities, Normal: Abdomen, Normal: Skin and Normal: Neurological Exam Comment: Subcutaneous mass, lower back on the right side Plan Diagnosis/Plan: Unchanged I have reviewed the history and physical and performed a pertinent physical examination on my patient. No changes have occurred unless specified. Time Spent With Patient Time: Total time managing care of this patient today ____ minutes.
--- NOTE | 2023-12-16 12:49 | P.OP_ITS ---
Operative Note Operative Note Date of Service: 12/16/23 Narrative: Preop diagnosis: Deep subcutaneous mass of the lower back Postop diagnosis: Subfascial lipoma of the lower back Procedure: Excision of subfascial lipoma of the lower back Surgeon: José Luis Metcalf MD The patient is a 63 year female referred to because of mass on back. This seemed to be a deep subcutaneous mass consistent with a lipoma. She understood the technique of excision under anesthesia in the OR. She was aware of the risks, benefits, and alternatives She was brought to the operating room and placed in left lateral decubitus position under general anesthesia via laryngeal mask airway. A surgical time- out was done. The patient received cefazolin 2 g IV preoperatively . The area of the mass which was on the right lower back was prepped and draped. Lidocaine 1 % was used for local anesthesia. I made an incision on the skin transversely using blade 15 overlying the mass which was difficult to feel. This was carried down with electrocautery through the full-thickness of the skin and deep subcutaneous fat. I still could not see the mass directly and could feel it under the fascia so I had to incise the fascia in the lipoma was seen. This was bluntly dissected and was sent as specimen. There was about a 3 cm lipoma. I copiously irrigated. I closed the fascia with interrupted 3-0 Polysorb sutures. The deep subcutaneous layer was apposed with Polysorb 3-0 sutures as well. Skin closure was achieved with full-thickness nylon 3-0 sutures. The area was infiltrated with Marcaine 0.5% for postop analgesia. Dressings were applied. The procedure was completed. The patient tolerated the procedure well. There were no immediate complications. Initial and final counts of sponges and instruments were correct. Estimated blood loss was about 10 cc. The patient was extubated without difficulty and transferred to the recovery with stable vital signs.
[2023-12-16] MEDS: oxyCODONE HCl Immed Release 5 MG TABLET PO (13:26)
== END 2023-12-16 14:15 | disposition home or self-care (01) ==
PROVIDERS: PCP Internal Medicine; Visit Provider Surgery
PROC: (CPT 21932; principal; 2023-12-16 11:50)
DX: D17.1 Benign lipomatous neoplasm of skin and subcutaneous tissue of trunk (principal); M79.7 Fibromyalgia; J30.9 Allergic rhinitis, unspecified; F33.0 Major depressive disorder, recurrent, mild; Z79.52 Long term (current) use of systemic steroids; Z79.899 Other long term (current) drug therapy; Z88.1 Allergy status to other antibiotic agents; Z87.891 Personal history of nicotine dependence; Z56.0 Unemployment, unspecified
CPT/HCPCS: 21932; 88304; J0690; J1100; J2250; J2405; J2704; J2795; J3010

== ENCOUNTER → 2023-12-16 09:32 | Outpatient (BNV) | payer OTHER, SELFPAY | PROVIDERS: PCP Internal Medicine; Visit Provider Surgery | DX: D17.1 Benign lipomatous neoplasm of skin and subcutaneous tissue of trunk (principal) | CPT/HCPCS: 21933 ==

== ENCOUNTER 2023-12-29 11:08 | Outpatient (AMB) | payer OTHER, SELFPAY ==
--- NOTE | 2023-12-29 11:09 | MHC.OFFVIS ---
Intake Visit Reasons: S/P excision of mass of lower back under anesth. Intake Note: This patient presents for a post-p status post excision of mass of lower back. Patient c/o; reports no complaints. Stamping Machine Operator Required: Yes Stamping Machine Operator Language: Property Technician Name: Lei Information Interpreted: non-clinical & clinical Accompanied by: Self / Same As Patient Allergies levofloxacin [From LEVAQUIN] Allergy (Intermediate, Verified 12/29/23 11:17) HIVES,REDDNESS,ITCHINESS HPI HPI S/P excision of mass of lower back under anesth.: Details: She underwent excision of a large lipoma from the back under anesthesia last December 16, 2023. She tolerated procedure well. She is here for postop visit. She says she is doing well and denies any complaints. [facility] Medical History Subcutaneous mass of back Herpes zoster Carpal tunnel syndrome Mild recurrent major depression Migraines Hypovitaminosis D Pure hypercholesterolemia Allergic rhinitis Renal calculi Fibromyalgia Overweight GERD (gastroesophageal reflux disease) Surgical History History of carpal tunnel release History of kidney stones Family History Father No problems noted. Mother Hypertension Congestive heart failure ESRD on hemodialysis Social History Housing: House Alcohol intake: former Year quit: 2006 Patient Tobacco Use Status: Former Tobacco user Quit Date: 2006 Years Smoked: 30 +/- e-Cigarette/Vaping Use: Never Used Second Hand Smoke Exposure: No service: No Current occupational status: unemployed Cognitive needs: No Hearing needs: No Vision needs: Yes Review of Systems Const Denies chills and Denies fever(s) Card Denies chest pain, Denies dyspnea and Denies dyspnea on exertion Resp Denies cough, Denies dyspnea and Denies dyspnea on exertion GI Denies hematochezia and Denies change in bowel habits Denies hematuria Musc Denies back pain and Denies limited range of motion Neuro Denies focal weakness and Denies convulsions Psych Denies depression and Denies mood swings Physical Exam Back/Spine/Pelvis Other: Excision site on the lower back is well healed, not infected Assessment & Plan Assessment & Plan (1) Lipoma: Code(s): D17.9 - Benign lipomatous neoplasm, unspecified Category: Medical Plan: Status post excision. Her surgical site is well healed and not infected. Her sutures were removed Her path report confirms a lipoma. She can follow up on a p.r.n. basis. Coding Level of Care Code Global (77162) Diagnoses Lipoma D17.9
== END 2023-12-29 11:33 | disposition home or self-care (01) ==
PROVIDERS: PCP Internal Medicine; Visit Provider Surgery
DX: D17.9 Benign lipomatous neoplasm, unspecified (principal)
CPT/HCPCS: 99024

== ENCOUNTER → 2023-12-29 11:08 | Outpatient (BNVA) | payer OTHER, SELFPAY | PROVIDERS: PCP Internal Medicine; Visit Provider Surgery | DX: D17.9 Benign lipomatous neoplasm, unspecified (principal) | CPT/HCPCS: 99212 ==

== ENCOUNTER 2024-01-30 13:27 | Emergency (ER) | payer OTHER, SELFPAY ==
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
--- NOTE | ~2024-01-30 | CT_ITS ---
EXAMINATION: CT CHEST WITHOUT CONTRAST CLINICAL INFORMATION: [facility] COMPARISON: Chest radiograph 10/05/2018 TECHNIQUE: Multidetector volumetric CT imaging of the chest was done. Axial MIP volume rendering provided. Sagittal and coronal reformatted images were obtained. This CT examination was performed using dose optimization techniques as appropriate, variously including the following: *Automated exposure control *Adjustment of mA and/or kV according to patient size (this includes techniques or standardized protocols for targeted exams where dose is matched to indication/reason for exam; i.e. extremities or head) *Use of iterative reconstruction technique DLP: 233 mGy-cm FINDINGS: LUNGS: Minimal emphysematous changes are present along with mild bronchial thickening. A few tiny micronodules are seen (for example 2 mm left upper lobe subpleural (28:165. No concerning lung nodule is present. No pneumothorax. MEDIASTINUM: The mediastinum is normal. CORONARY ARTERY CALCIFICATION: None visualized on this study. PLEURA: There is no pleural effusion. No pleural mass or thickening. AXILLA: No lymphadenopathy. UPPER ABDOMEN: Small hiatal hernia is present. There is hepatic steatosis. OSSEOUS STRUCTURES: Unremarkable. CT/CT chest wo IV con IMPRESSION: 1. No evidence of traumatic injury in the chest. 2. Incidental note made of minimal emphysematous changes, hepatic steatosis and small hiatal hernia. Fleischner guidelines were followed.
[2024-01-30 14:12] VITALS: BP 133/73; BP 178/88; PULSE 81; PULSE 94; RESP 18; TEMP 36.3; O2SAT 96; BMI 28.9
[2024-01-30] MEDS: Acetaminophen 325 MG TABLET 650 MG PO (14:19)
--- NOTE | 2024-01-30 14:20 | PC.NURSE ---
pt medicated per order
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
[2024-01-30 16:12] VITALS: BP 146/77; PULSE 76; RESP 19; TEMP 36.6; O2SAT 98
[2024-01-30 16:15] VITALS: BP 146/77; PULSE 76; RESP 20; TEMP 36.6; O2SAT 98
== END 2024-01-30 16:18 | disposition home or self-care (01) ==
PROVIDERS: Emergency Provider Emergency Medicine; PCP Internal Medicine
DX: S13.4XXA Sprain of ligaments of cervical spine, initial encounter (principal); S20.219A Contusion of unspecified front wall of thorax, initial encounter; M54.2 Cervicalgia; R51.9 Headache, unspecified; R07.89 Other chest pain; V43.52XA Car driver injured in collision with other type car in traffic accident, initial encounter; Y93.9 Activity, unspecified; Y92.410 Unspecified street and highway as the place of occurrence of the external cause; Y99.8 Other external cause status
CPT/HCPCS: 70450; 71250; 72125; 99283; 99284

== ENCOUNTER → 2024-06-04 10:05 | Outpatient (BNVA) | payer SELFPAY | PROVIDERS: PCP Internal Medicine; Visit Provider Physician Assistant Medical | DX: Z02.79 Encounter for issue of other medical certificate (principal) ==

== ENCOUNTER 2024-06-06 09:31 | Outpatient (AMB) | payer OTHER, SELFPAY ==
--- NOTE | 2024-06-06 09:34 | MHC.OFFVIS ---
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 She is doing well with no concerns. Right sided pain, hematuria at work on Tuesday. Attempting to eat a healthy diet with calcium and vitamin D and stays active with exercise. Currently sexually active. Denies any vaginal irritation. Admit to vaginal dryness, painful intimacy. STI testing offered; she accepts. Last pap smear; 2017. Last mammogram; 2021. Colonoscopy is UTD. Denies any family history of breast, ovarian or colon cancer. [facility] Medical History Subcutaneous mass of back Herpes zoster Carpal tunnel syndrome Mild recurrent major depression Migraines Hypovitaminosis D Pure hypercholesterolemia Allergic rhinitis Renal calculi Fibromyalgia Overweight GERD (gastroesophageal reflux disease) Surgical History History of carpal tunnel release History of kidney stones Family History Father No problems noted. Mother Hypertension Congestive heart failure ESRD on hemodialysis Social History Housing: House Alcohol intake: former Year quit: 2006 Patient Tobacco Use Status: Former Tobacco user Years Smoked: 30 +/- e-Cigarette/Vaping Use: Never Used Second Hand Smoke Exposure: No service: No Current occupational status: unemployed Cognitive needs: No Hearing needs: No Vision needs: Yes Female Reproductive History Menstrual control method: permanent sterilization Permanent Sterilization: BTL Total pregnancies: 6 Full term: 5 Number of Living Children: 5 Ab spontaneous: 1 Date of last pap smear: 12/14/12 (neg) Date of Mammogram: 04/16/22 (Birad 2) Date of last Bone Density Screenin04/16/22 Review of Systems Const All systems reviewed & are unremarkable except as noted in HPI and below Reports as per HPI Eyes Reports no additional complaints ENT Reports no additional complaints Card Reports no additional complaints Resp Reports no additional complaints GI Reports as per HPI and Reports no additional complaints Reports as per HPI Musc Reports no additional complaints Skin/Breast Reports as per HPI Neuro Reports no additional complaints Psych Reports no additional complaints Endo Reports no additional complaints Suleiman/Lymph Reports no additional complaints Aller/Immun Reports no additional complaints Physical Exam Vital Signs: Last Vital Signs BP 114/60 06/06/24 09:36 BMI result Body Mass Index 28.9 Const General: cooperative, healthy appearing, no acute distress, well developed and alert Orientation/consciousness: patient oriented x3 HEENT Head: Yes normal to inspection Eyes General: appearance normal, both eyes and all related structures Neck Neck: Yes normal visual inspection Thyroid: Thyroid normal Chest Other: Tenderness left breast with slight thickening at around 7-8 o'clock Chest palpation & inspection: normal inspection of the chest and other (no puckering, dimpling, peau de orange, retraction, discharge, masses) Breast/axilla inspection: normal inspection of the breasts Breast/axilla palpation: normal palpation of the breasts Resp Effort & Inspection: normal respiratory effort GI Inspection: Yes normal to inspection Palpation (GI): Soft to palpation Rectal Exam - Female: deferred General: Yes bladder normal to palpation External Female Exam: normal external appearance and normal appearance of the urethra Speculum Exam - Vagina: normal appearance of the vagina, normal palpation, normal vaginal discharge and vagina atrophic Speculum Exam - Cervix: normal appearance of the cervix, normal palpation and Other cervical findings present (Atrophic changes bled with Pap) Bimanual exam- vagina & uterus: normal bimanual exam, normal palpation, uterine size normal, bladder normal to palpation, normal palpation and non-tender Bimanual Exam- Adnexa, other: no masses Skin General skin exam: no rashes or lesions noted Rashes: no rashes Neuro General: patient oriented x3 Cognition (Neuro): normal cognition Extrem General: Yes normal to inspection Psych Attitude: cooperative Thought process: Normal thought process present Assessment & Plan Assessment & Plan (1) Encounter for well woman exam with routine gynecological exam: Code(s): Z01.419 - Encounter for gynecological examination (general) (routine) without abnormal findings Category: Medical (2) Pelvic pain: Code(s): R10.2 - Pelvic and perineal pain Category: Medical (3) Breast pain: Code(s): N64.4 - Mastodynia Category: Medical (4) Breast thickening: Code(s): N64.59 - Other signs and symptoms in breast Category: Medical Plan Discussed: Current recommendations for pap smears per ASCCP guidelines. Pap smear screening obtained. Breast awareness, periodic self breast exams and yearly mammogram. Diagnostic mammogram and left breast ultrasound follow up in person results. Maintain a healthy lifestyle, well balanced diet including Calcium 1,200 mg and Vitamin D 600 IU daily, and routine exercise. Pelvic ultrasound, GC chlamydia, urine clean-catch ordered, follow up in person for test results. Contact the office with any postmenopausal bleeding. Postmenopausal changes with atrophy include vaginal pain and dryness and occasional bleeding may occur, initiate Replens moisturizer may need to wait up to 12 weeks for benefits to work, additionally can add a lubricant-patient provided with names of brands available [id number]. Patient verbalizes understanding and agrees to the plan of care. She was given opportunity to ask questions and all questions were answered to the best of my ability. 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 This note is constructed using voice recognition software. While every effort has been made to ensure accuracy, safety investigator errors may have been included. Orders: Orders US pelvic and transvaginal Today R10.2 - Pelvic and perineal pain US breast LT complete Today N64.4 - Mastodynia, N64.59 - Other signs and symptoms in breast PAP + HPV E6/E7 rfx 18/45 Today Z01.419 - Encounter for gynecological examination (general) (routine) without abnormal findings CT NG by PCR Today Z20.2 - Contact with and (suspected) exposure to infections with a predominantly sexual mode of transmission UA CC w/rflx Micro + Cult Today R10.2 - Pelvic and perineal pain MM tomosynthesis diagnostic BI Today N64.4 - Mastodynia, N64.59 - Other signs and symptoms in breast, Z12.31 - Encounter for screening mammogram for malignant neoplasm of breast Coding Level of Care Code New Pt Prev Care 40-64y(38955) Diagnoses Encounter for well woman exam with routine gynecological exam Z01.419 Pelvic pain R10.2 Breast pain N64.4 Breast thickening N64.59
[2024-06-06 09:36] VITALS: BP 114/60; BMI 28.9
== END 2024-06-06 10:32 | disposition home or self-care (01) ==
LOC: HO.HWS 09:31
PROVIDERS: PCP Internal Medicine; Visit Provider Advanced Practice Midwife
DX: Z01.419 Encounter for gynecological examination (general) (routine) without abnormal findings (principal); R10.2 Pelvic and perineal pain; N64.4 Mastodynia; N64.59 Other signs and symptoms in breast
CPT/HCPCS: 99386

== ENCOUNTER 2024-06-06 09:31 | Outpatient (REF) | payer OTHER, SELFPAY ==
[2024-06-07 03:14] LABS: CT PCR NOT DETECTED (Not Detect.); NG PCR NOT DETECTED (Not Detect.)
[2024-06-07 08:52] LABS: HPV 16,18/45 See PAP report
== END 2024-06-06 09:32 | disposition home or self-care (01) ==
LOC: HO.LNP 09:31
PROVIDERS: PCP Internal Medicine; Visit Provider Advanced Practice Midwife
DX: Z20.2 Contact with and (suspected) exposure to infections with a predominantly sexual mode of transmission (principal); Z01.419 Encounter for gynecological examination (general) (routine) without abnormal findings; R10.2 Pelvic and perineal pain; N64.4 Mastodynia; N64.59 Other signs and symptoms in breast
CPT/HCPCS: 87491; 87591; 87624; 88175; 99386

== ENCOUNTER 2024-06-18 13:09 | Outpatient (REF) | payer OTHER, SELFPAY | END 2024-06-18 13:10 | disposition home or self-care (01) | LOC: HO.US 13:09 | PROVIDERS: PCP Internal Medicine; Visit Provider Advanced Practice Midwife | DX: R10.2 Pelvic and perineal pain (principal) | CPT/HCPCS: 76830; 76856 ==

== ENCOUNTER 2024-06-22 12:06 | Outpatient (REF) | payer OTHER, SELFPAY ==
--- NOTE | ~2024-06-22 | MM_ITS ---
EXAMINATION: MM DIAGNOSTIC DIGITAL BREAST TOMOSYNTHESIS, BILATERAL CLINICAL INFORMATION: Left breast pain. COMPARISON: Mammography: Comparison is made with relevant prior exams. TECHNIQUE: Digital breast mammography with tomosynthesis is performed in both the craniocaudal and mediolateral oblique views along with computer-aided detection (CAD). Targeted Limited left breast ultrasound. FINDINGS: There are scattered areas of fibroglandular density (ACR BI-RADS breast composition Category b). There are no significant masses, abnormal calcifications, or other abnormalities. [place] marker in the left breast area of patient's pain without underlying abnormality. Targeted color Doppler ultrasound in the left breast scanning from 6-10 o'clock, 8:00 6 cm from nipple there is a simple to minimally complicated cyst measuring 3 x 2 x 4 mm this is an incidental benign. Otherwise scanning from 6-10 o'clock in straight normal fibroglandular breast tissue. There is no sonographic abnormality to correlate with the patient's pain. Results are provided to the patient at time of visit by the technologist. MM/MM tomosynthesis diagnostic BI IMPRESSION: Simple to minimally complicated cyst in the left breast 8:00. Benign. No mammographic or sonographic abnormality in the left breast to account for the patient's left breast pain. Recommend clinical evaluation and follow-up. Right: Negative. ASSESSMENT: BI-RADS BI-RADS 2 - Benign Findings RECOMMENDATION: 1 year F/U This patient's information was entered into a reminder system with a target due date for their next mammogram. Electronically signed by: Suha Girard DO 06/22/2024 01:33 PM DAYAN
== END 2024-06-22 12:07 | disposition home or self-care (01) ==
LOC: HO.MAMMO 12:06
PROVIDERS: PCP Internal Medicine; Visit Provider Advanced Practice Midwife
DX: N64.59 Other signs and symptoms in breast (principal); N64.4 Mastodynia
CPT/HCPCS: 76642; 77062; 77066

== ENCOUNTER → 2024-06-22 12:30 | Outpatient (BNV) | payer OTHER, SELFPAY | PROVIDERS: PCP Internal Medicine; Visit Provider Internal Medicine | DX: N64.4 Mastodynia (principal) | CPT/HCPCS: 76642; 77062; 77066 ==

== ENCOUNTER 2024-08-16 08:31 | Outpatient (AMB) | payer OTHER, SELFPAY ==
--- NOTE | 2024-08-16 08:33 | MHC.OFFVIS ---
Intake Visit Reasons: pelvic/breast ultrasound results Litigation Assistant Required: No Litigation Assistant Services: Litigation Assistant Offered & Declined Tire Worker: Tire Worker Present (Val) Allergies levofloxacin [From LEVAQUIN] Allergy (Intermediate, Verified 08/16/24 08:34) HIVES,REDDNESS,ITCHINESS HPI Comments Details: Patient is here today for a follow up breast ultrasound and mammogram due to history of breast thickening and tenderness. She denies any tenderness today. She denies any nipple discharge, family history is negative for breast cancer. [facility] Medical History (Updated 08/16/24 @ 08:56 by Shania Nava CNM) Cyst of left breast Breast thickening Breast pain Subcutaneous mass of back Herpes zoster Carpal tunnel syndrome Mild recurrent major depression Migraines Hypovitaminosis D Pure hypercholesterolemia Allergic rhinitis Renal calculi Fibromyalgia Overweight GERD (gastroesophageal reflux disease) Surgical History History of carpal tunnel release History of kidney stones Family History Father No problems noted. Mother Hypertension Congestive heart failure ESRD on hemodialysis Social History Housing: House Alcohol intake: former Year quit: 2006 Patient Tobacco Use Status: Former Tobacco user Years Smoked: 30 +/- e-Cigarette/Vaping Use: Never Used Second Hand Smoke Exposure: No service: No Current occupational status: unemployed Cognitive needs: No Hearing needs: No Vision needs: Yes Review of Systems Const All systems reviewed & are unremarkable except as noted in HPI and below Reports no additional complaints Skin/Breast Reports system reviewed and no additional complaints, except as documented and Reports as per HPI Physical Exam Const General: cooperative, healthy appearing and no acute distress Chest Other: Slight thickening and 8 o'clock position left breast nontender. Breast/axilla inspection: normal inspection of the breasts and normal inspection of the axillae Breast/axilla palpation: normal palpation of the breasts Skin General skin exam: no rashes or lesions noted Results Reviewed Results Reviewed: [facility] [address] [place] [address] Ultrasound Report Signed Patient: Anastasia Squires MR#: [id number] : 1960 Acct:[id number] Age/Sex: 64 / F ADM Date: 06/22/24 Loc: HO.MAMMO Attending Dr: Shania Nava CNM Ordering Physician: Shania Nava CNM Date of Service: 06/22/24 Procedure(s): US breast LT limited mamm only Accession Number(s): [id number] cc: Shania Nava CNM; Brenda Nunez MD~ EXAMINATION: MM DIAGNOSTIC DIGITAL BREAST TOMOSYNTHESIS, BILATERAL CLINICAL INFORMATION: Left breast pain. COMPARISON: Mammography: Comparison is made with relevant prior exams. TECHNIQUE: Digital breast mammography with tomosynthesis is performed in both the craniocaudal and mediolateral oblique views along with computer-aided detection (CAD). Targeted Limited left breast ultrasound. FINDINGS: There are scattered areas of fibroglandular density (ACR BI-RADS breast composition Category b). There are no significant masses, abnormal calcifications, or other abnormalities. [place] marker in the left breast area of patient's pain without underlying abnormality. Targeted color Doppler ultrasound in the left breast scanning from 6-10 o'clock, 8:00 6 cm from nipple there is a simple to minimally complicated cyst measuring 3 x 2 x 4 mm this is an incidental benign. Otherwise scanning from 6-10 o'clock in straight normal fibroglandular breast tissue. There is no sonographic abnormality to correlate with the patient's pain. Results are provided to the patient at time of visit by the technologist. US/US breast LT limited mamm only IMPRESSION: Simple to minimally complicated cyst in the left breast 8:00. Benign. No mammographic or sonographic abnormality in the left breast to account for the patient's left breast pain. Recommend clinical evaluation and follow-up. Right: Negative. ASSESSMENT: BI-RADS BI-RADS 2 - Benign Findings RECOMMENDATION: 1 year F/U This patient's information was entered into a reminder system with a target due date for their next mammogram. Electronically signed by: Suha Girard DO 06/22/2024 01:33 PM EST Dictated By: Suha Girard DO Signed By: <Electronically signed by Suha Girard DO in OV> 06/22/24 1333 DD/ 1300 TD/TT: 06/22/24 1321 Home Day Care Provider: Assessment & Plan Assessment & Plan (1) Cyst of left breast: Code(s): N60.02 - Solitary cyst of left breast Category: Medical (2) Encounter to discuss test results: Code(s): Z71.2 - Person consulting for explanation of examination or test findings Plan Discussed: Breast imaging results-slightly complicated cystic region of the left breast, plan referral to breast surgeon for evaluation and consultation, patient would like to see Dr. Metcalf as she has been a patient of his. Advised to call sooner if there is any other changes or concerns. The patient expressed understanding and agreement with the plan of care. All of her questions and concerns were addressed to the best of my ability. This note is constructed using voice recognition software. While every effort has been made to ensure accuracy, donor relations officer errors may have been included. Orders: Referrals Breast Surgery Referral N60.02 - Solitary cyst of left breast Coding Level of Care Code Est Pt Level 3 (82246) Diagnoses Cyst of left breast N60.02 Encounter to discuss test results Z71.2
== END 2024-08-16 13:06 | disposition home or self-care (01) ==
LOC: HO.HWS 08:31
PROVIDERS: PCP Internal Medicine; Visit Provider Advanced Practice Midwife
DX: N60.02 Solitary cyst of left breast (principal); Z71.2 Person consulting for explanation of examination or test findings
CPT/HCPCS: 99213

== ENCOUNTER → 2024-08-16 08:31 | Outpatient (BNVA) | payer OTHER, SELFPAY | PROVIDERS: PCP Internal Medicine; Visit Provider Advanced Practice Midwife | DX: Z71.2 Person consulting for explanation of examination or test findings (principal); N60.02 Solitary cyst of left breast | CPT/HCPCS: 99212 ==

== ENCOUNTER 2024-08-30 13:44 | Outpatient (AMB) | payer OTHER, SELFPAY ==
--- NOTE | 2024-08-30 14:02 | MHC.OFFVIS ---
Vital Signs 08/30/24 14:07 Height 5 ft 3 in Weight 163 lb 8 oz BMI 29.0 Intake Visit Reasons: Solitary cyst of left breast Intake Note: This patient was referred by Shania Nava for Solitary cyst of left breast. Pt c/o; no concerns. Imaging: Breast US:06/22/24 MM Dia06/22/2024 Antique Finisher Required: Yes Antique Finisher Language: Radiator Core Tester Services: Antique Finisher Present Antique Finisher Name: Lei Information Interpreted: non-clinical & clinical Accompanied by: Self / Same As Patient Allergies levofloxacin [From LEVAQUIN] Allergy (Intermediate, Verified 08/30/24 14:07) HIVES,REDDNESS,ITCHINESS Medication List - Last Reconciled 08/30/24 by José Luis Metcalf MD albuterol sulfate 90 mcg/actuation (Ventolin HFA) 2 puffs inhalation Q4-6H PRN calcium carbonate 1,200 mg (2 x 600 mg calcium (1,500 mg)) PO DAILY 90 days cholecalciferol (vitamin D3) 50 mcg PO DAILY 90 days cyclobenzaprine 5 mg PO TID PRN cyclobenzaprine 10 mg PO TID PRN famotidine 20 mg PO DAILY PRN 90 days fluticasone propionate 50 mcg/actuation (Flonase Allergy Relief) 1 spray intranasal DAILY hydrochlorothiazide 12.5 mg PO DAILY 90 days meloxicam 15 mg PO DAILY 90 days sumatriptan succinate 100 mg PO ONCE PRN 30 days tramadol 50 mg PO Q6H PRN HPI HPI Solitary cyst of left breast: Details: 64-year-old female referred for a left breast cyst. She had undergone mammogram ultrasound last year a June,. This showed a simple cyst on the left breast at the 8 o'clock position measuring 3 x 2 x 4 mm. She denies any palpable breast masses She denies any complaints with regards to her breast. Her menarche was at age of 17. Her 1st was at age of 25. She says she had 5 pregnancies. She had menopause in her 50s. She denies any family history of breast cancer. [facility] Medical History (Updated 08/30/24 @ 14:14 by José Luis Metcalf MD) Breast cyst Cyst of left breast Breast thickening Breast pain Subcutaneous mass of back Herpes zoster Carpal tunnel syndrome Mild recurrent major depression Migraines Hypovitaminosis D Pure hypercholesterolemia Allergic rhinitis Renal calculi Fibromyalgia Overweight GERD (gastroesophageal reflux disease) Surgical History History of carpal tunnel release History of kidney stones Family History Father No problems noted. Mother Hypertension Congestive heart failure ESRD on hemodialysis Social History Housing: House Alcohol intake: former Year quit: 2006 Patient Tobacco Use Status: Former Tobacco user Years Smoked: 30 +/- e-Cigarette/Vaping Use: Never Used Second Hand Smoke Exposure: No service: No Current occupational status: unemployed Cognitive needs: No Hearing needs: No Vision needs: Yes Review of Systems Const Denies chills and Denies fever(s) Card Denies chest pain, Denies dyspnea and Denies dyspnea on exertion Resp Denies cough, Denies dyspnea and Denies dyspnea on exertion GI Denies hematochezia and Denies change in bowel habits Denies hematuria Musc Denies back pain and Denies limited range of motion Neuro Denies focal weakness and Denies convulsions Psych Denies depression and Denies mood swings Physical Exam Vital Signs: BMI result Body Mass Index 29.0 Const General: comfortable and no acute distress Orientation/consciousness: patient oriented x3 Neck Neck: Yes no lymphadenopathy Chest Other: No palpable breast masses, no nipple or skin changes, no axillary lymphadenopathy Resp Auscultation: clear to auscultation bilaterally Cardio Rhythm: regular rhythm GI Palpation (GI): Soft to palpation, nontender and no guarding Neuro General: patient oriented x3 Assessment & Plan Assessment & Plan (1) Breast cyst: Code(s): N60.09 - Solitary cyst of unspecified breast Category: Medical Plan: She has this benign looking left breast cyst seen on ultrasound and mammogram. I assured her that this does not appear concerning at this time. This is also very small in dimension. I have recommended continue with the regular yearly screening mammograms. She does not appear to be at above average risk for breast cancer so she can follow up on a p.r.n. basis. Coding Level of Care Code New Pt Level 3 (93506) Diagnoses Breast cyst N60.09
[2024-08-30 14:07] VITALS: BMI 29.0
== END 2024-08-30 14:12 | disposition home or self-care (01) ==
PROVIDERS: PCP Internal Medicine; Visit Provider Surgery
DX: N60.09 Solitary cyst of unspecified breast (principal)
CPT/HCPCS: 99213

== ENCOUNTER → 2024-08-30 13:44 | Outpatient (BNVA) | payer OTHER, SELFPAY | PROVIDERS: PCP Internal Medicine; Visit Provider Surgery | DX: N60.09 Solitary cyst of unspecified breast (principal) | CPT/HCPCS: 99212 ==

== ENCOUNTER 2024-10-22 09:54 | Outpatient (AMB) | payer OTHER, SELFPAY ==
--- NOTE | 2024-10-22 09:57 | MHC.OFFVIS ---
Vital Signs 10/22/24 09:58 Height 5 ft 3 in Weight 160 lb 14.999 oz BMI 28.5 BP 132/64 Blood Pressure Location Lt brachial Position Sitting Pulse 63 Intake Visit Reasons: Abdominal pain Intake Note: Anastasia presents in the office as a new patient for abdominal pains. CC: She states that she has issues with her stomach but no irregular bowel movements. She had the flu and has not been okay since. She states when she eats she gets bad pains. Plant Engineering Manager Required: No Allergies levofloxacin [From LEVAQUIN] Allergy (Intermediate, Verified 10/22/24 10:23) HIVES,REDDNESS,ITCHINESS HPI Comments Details: 64 y.o F with PMH of GERD, fibromyalgia, migraine, CTS, who is here for abd pain. Reports longstanding hx of GERD for which she was on omeprazole x decades. Stopped almost 2 years ago. Was doing better until a few months ago when she developed burning epigastric pain and odynophagia. Was taking meloxicam for a few months before this started which she has since stopped. Also with sensation of food getting stuck. Pt hesitant to resume PPI so started on famotidine 40 by PCP. This did make sx better the heartburn is better. The abd pain is still tehre, fer post prandial. No changes in stool. No melena, or hematochezia. no fam hx of CRC. does not smoke. No etoH use. Last colo 2017 - Normal. 10 year recall. [facility] Medical History Breast cyst Cyst of left breast Breast thickening Breast pain Subcutaneous mass of back Herpes zoster Carpal tunnel syndrome Mild recurrent major depression Migraines Hypovitaminosis D Pure hypercholesterolemia Allergic rhinitis Renal calculi Fibromyalgia Overweight GERD (gastroesophageal reflux disease) Surgical History (Updated 10/22/24 @ 10:23 by LISANDRO Mancilla) Hx of colonoscopy History of carpal tunnel release History of kidney stones Family History Father No problems noted. Mother Hypertension Congestive heart failure ESRD on hemodialysis Social History Housing: House Alcohol intake: former Year quit: 2006 Patient Tobacco Use Status: Former Tobacco user Years Smoked: 30 +/- e-Cigarette/Vaping Use: Never Used Second Hand Smoke Exposure: No service: No Current occupational status: unemployed Cognitive needs: No Hearing needs: No Vision needs: Yes Review of Systems Const All systems reviewed & are unremarkable except as noted in HPI and below Physical Exam Vital Signs: Last Vital Signs Pulse 63 10/22/24 09:58 BP 132/64 10/22/24 09:58 BMI result Body Mass Index 28.5 No apparent distress Nonicteric Abdomen soft, nondistended Alert and oriented x3, normal gait Assessment & Plan Assessment & Plan (1) Abdominal pain: Code(s): R10.9 - Unspecified abdominal pain Category: Medical (2) GERD (gastroesophageal reflux disease): Code(s): K21.9 - Gastro-esophageal reflux disease without esophagitis Category: Medical Qualifiers: Esophagitis presence: esophagitis presence not specified Qualified Code(s): K21.9 - Gastro-esophageal reflux disease without esophagitis Plan Ddx include esophagitis, GERD, PUD, celiac, gallstones. Plan: - Start pantoprazole 20 at night x 8-12 weeks - Avoid NSAIDs - Labs as below. US abd if LFTs abnormal. - Barium swallow - EGD to be booked Follow up after EGD Orders: Orders Complete Blood Count no Diff Today R10.9 - Unspecified abdominal pain Liver Panel Today R10.9 - Unspecified abdominal pain TSH reflex Free T4 Today R10.9 - Unspecified abdominal pain Transglutaminase IgA Today R10.9 - Unspecified abdominal pain [place] barium swallow Today K21.9 - Gastro-esophageal reflux disease without esophagitis, R10.9 - Unspecified abdominal pain Immunoglobulin A Today R10.9 - Unspecified abdominal pain Medications: New pantoprazole (Protonix) 20 mg PO BEDTIME 90 tabs 0RF K21.9 - Gastro-esophageal reflux disease without esophagitis Discontinued meloxicam Discontinued Reason: Doctor's Order 15 mg PO DAILY 90 days 90 tabs 1RF Coding Level of Care Code New Pt Level 4 (01220) Diagnoses Abdominal pain R10.9 Gastroesophageal reflux disease, unspecified whether esophagitis present K21.9 Esophagitis presence: esophagitis presence not specified
[2024-10-22 09:58] VITALS: BP 132/64; PULSE 63; BMI 28.5
== END 2024-10-22 11:16 | disposition home or self-care (01) ==
LOC: HO.HGI 09:55
PROVIDERS: PCP Internal Medicine; Visit Provider Internal Medicine
DX: R10.9 Unspecified abdominal pain (principal); K21.9 Gastro-esophageal reflux disease without esophagitis
CPT/HCPCS: 99204

== ENCOUNTER → 2024-10-22 09:54 | Outpatient (BNVA) | payer OTHER, SELFPAY | PROVIDERS: PCP Internal Medicine; Visit Provider Internal Medicine | DX: R10.9 Unspecified abdominal pain (principal); K21.9 Gastro-esophageal reflux disease without esophagitis; M79.7 Fibromyalgia | CPT/HCPCS: 99202 ==

== ENCOUNTER 2024-12-06 10:58 | Outpatient (AMB) | payer OTHER, SELFPAY ==
--- NOTE | 2024-12-06 11:01 | MHC.PC.OV ---
Vital Signs 12/06/24 11:03 Height 5 ft 3 in Weight 161 lb BMI 28.5 BP 136/68 Blood Pressure Location Lt brachial Position Sitting Intake Visit Reasons: annual exam Intake Note: Patient here for an annual physical exam [facility] Required: No Accompanied by: Self / Same As Patient Allergies levofloxacin [From LEVAQUIN] Allergy (Intermediate, Verified 12/06/24 11:14) HIVES,REDDNESS,ITCHINESS Medication List - Last Reconciled 12/06/[address] MD albuterol sulfate 90 mcg/actuation (Ventolin HFA) 2 puffs inhalation Q4-6H PRN calcium carbonate 1,200 mg (2 x 600 mg calcium (1,500 mg)) PO DAILY 90 days cholecalciferol (vitamin D3) 50 mcg PO DAILY 90 days cyclobenzaprine 5 mg PO TID PRN famotidine 20 mg PO DAILY PRN 90 days fluticasone propionate 50 mcg/actuation (Flonase Allergy Relief) 1 spray intranasal DAILY hydrochlorothiazide 12.5 mg PO DAILY 90 days pantoprazole (Protonix) 20 mg PO BEDTIME sumatriptan succinate 100 mg PO ONCE PRN 30 days Tobacco use date assessed: 12/06/24 Dental Screening Dental Screen Date: 12/06/24 Did you have a dental visit in the last 12 months?: Yes Did you have a dental problem in the last 6 months where you did not have access to dental care?: No Was dental information given to patient?: Patient has dentist HPI HPI Comments History of Present Illness Details The patient is a 64-year-old female presenting for her physical exam. She has concerns about significant generalized body pain, likely suspecting an arthritic component. She experiences chronic discomfort and has agreed to further laboratory studies to assess for various types of arthritis. Additionally, the patient has a history of migraines managed with sumatriptan on an as-needed basis and an allergy to Levaquin. The patient's medical history is significant for myocardial infarction and nephrolithiasis. A noted family history includes her mother's from congestive heart failure and renal disease. She maintains that her father, though distant, is alive with leg conditions, but further details on his health are limited. The patient abstains from tobacco and alcohol since the age of 20 and reports experiencing some forgetfulness she attributes to stress. She also manages minor depression levels and does not possess a rescue inhaler or pump for respiratory issues. - Scheduled for next colonoscopy in 2026. - Pap smear and mammogram last performed one year ago. - Influenza vaccination recommended, patient agreed to receive during the visit. - Laboratory tests indicated for cholesterol, glucose, renal, hepatic functions. [facility] Medical History (Updated 12/06/24 @ 11:[address] MD) Breast cyst Cyst of left breast Breast thickening Breast pain Subcutaneous mass of back Herpes zoster Carpal tunnel syndrome Mild recurrent major depression Migraines Hypovitaminosis D Pure hypercholesterolemia Allergic rhinitis Renal calculi Fibromyalgia Overweight GERD (gastroesophageal reflux disease) Surgical History Hx of colonoscopy History of carpal tunnel release History of kidney stones Family History Father No problems noted. Mother Hypertension Congestive heart failure ESRD on hemodialysis Social History Housing: House Alcohol intake: former Year quit: 2006 Patient Tobacco Use Status: Former Tobacco user Years Smoked: 30 +/- e-Cigarette/Vaping Use: Never Used Second Hand Smoke Exposure: No service: No Current occupational status: unemployed Cognitive needs: No Hearing needs: No Vision needs: Yes Questionnaire PHQ-9 Over the last 2 weeks, how often have you been bothered by any of the following problems? 1. Little interest or pleasure in doing things: not at all 2. Feeling down, depressed, or hopeless: not at all 3. Trouble falling or staying asleep, or sleeping too much: several days 4. Feeling tired or having little energy: several days 5. Poor appetite or overeating: not at all 6. Feeling bad about yourself - or that you are a failure or have let yourself or your family down: not at all 7. Trouble concentrating on things, such as reading the newspaper or watching television: not at all 8. Moving or speaking so slowly that other people could have noticed. Or the opposite - being so fidgety or restless that you have been moving around a lot more than usual: not at all 9. Thoughts that you would be better off or of hurting yourself in some way: not at all Total score: 2 Depression Screening Interpretation: Negative Depression Screening Done: Yes 14445 - PHQ-9 Billing: Yes Source: Developed by Drs. Garth Mao, Susan Fernandez, Km Callahan and colleagues, with an educational isiah from [employer]. Thrive Questionnaire Date Thrive assessed: 12/06/24 I am a: Patient What is your living situation today?: I have a steady place to live Within the past 12 months, did the food you bought not last and you didn't have the money to get more?: Often true Within the past 12 months, did you worry whether your food would run out before you got money to buy more?: Often true Do you have trouble paying for medicines?: No Do you have trouble getting transportation to medical appointments?: No Do you have trouble paying your heating and electricity bill?: I choose not to answer this question Do you have trouble taking care of your child, family member or friend?: No Do you have trouble with day-to-day activities such as bathing, preparing meals, shopping, managing finances, etc.?: I choose not to answer this question Are you currently unemployed and looking for a job?: No Are you interested in more education?: No Please select the resources that you would like help with: None Currently or been in a relationship where the following occur: No concerns reported and I choose not to answer THRIVE Score: 2 AUDIT C Alcohol Use Questionnaire (AUDIT-C) 1. How often do you have a drink containing alcohol?: Never Total Score: 0 Score Reviewed/Action Taken: No SHELBY-7 AMB Questionnaire SHELBY-7 Date SHELBY - 7 assessed: 12/06/24 Feeling nervous, anxious, or on edge: 0 = Not at all Not being able to stop or control worryin = Not at all Worrying too much about different things: 0 = Not at all Trouble relaxin = Not at all Being so restless that it is hard to sit still: 0 = Not at all Becoming easily annoyed or irritable: 0 = Not at all Feeling afraid as if something awful might happen: 0 = Not at all Total SHELBY-7 score (0-4 normal; 5-9 mild; 10-14 moderate; 15-21 severe): 0 Source: Developed by Drs. Garth Mao, Susan Fernandez, Km Callahan and colleagues, with an educational isiah from [employer]. SHELBY-7 Assessment Billing SHELBY-7 Assessment Tool: SHELBY-7 Assessment 01294 Review of Systems Const All systems reviewed & are unremarkable except as noted in HPI and below Card Denies chest pain at rest, Denies chest pain with activity, Denies edema, Denies irregular heart rhythm, Denies claudication, Denies dyspnea, Denies dyspnea on exertion, Denies orthopnea, Denies paroxysmal nocturnal dyspnea and Denies slow heart rate Resp Denies cough, Denies dyspnea and Denies dyspnea on exertion Musc Reports arthralgias Physical exam (Primary Care) Vital Signs: Last Vital Signs BP 136/68 12/06/24 11:03 BMI result Body Mass Index 28.5 Tobacco/Smoking Status: Tobacco use Status Tobacco use date assessed 12/06/24 12/06/24 11:08 Patient Tobacco Use Status Former Tobacco user 12/06/24 11:08 Tobacco use type 03/30/23 09:26 e-Cigarette/Vaping Use Never Used 12/06/24 11:08 PHQ-9: PHQ-9 Score PHQ-9: Total score 2 12/06/24 11:17 Depression Screening Interpretation: Negative Thrive Assessment: Date of Thrive Assessment Date Thrive assessed 12/06/24 12/06/24 11:08 Currently or been in a relationship where the following occur: No concerns reported and I choose not to answer [facility] Head: Yes normal to inspection, Yes normocephalic and Yes atraumatic Ears: external ears normal Eyes General: appearance normal, both eyes and all related structures Eyelids: Yes eyelids normal Conjunctivae: conjunctivae normal Neck Neck: Yes normal visual inspection and Yes supple Resp Effort & Inspection: normal respiratory effort Auscultation: clear to auscultation bilaterally Cardio Jugular venous distension: no JVD Rate: regular rate Rhythm: regular rhythm Heart sounds: S1 normal heart sound present and S2 normal heart sound present GI Inspection: Yes normal to inspection Palpation (GI): Soft to palpation and nontender Auscultation: normal bowel sounds Skin General skin exam: no rashes or lesions noted Neuro General: no focal motor deficits Extrem General: Yes full ROM Psych Appearance: grossly normal Immunizations Boostrix Tdap 2.5 Lf unit-8 mcg-5 Lf/0.5 mL intramuscular syringe Performing Provider: Brenda Street MD Performing Location: [facility] Administered by: LISANDRO Rodriguez on 12/06/24 11:28 Dose Route Admin Location Dispensed Lot Number Expiration Date NDC Features Editor 0.5 mL IM Left Deltoid 0.5 mL [id number] 04/02/27 [id number] Corthera VIS Given Date VIS Provided VIS Publication Date 12/06/24 Single Vaccine 24 Eligibility Eligibility Date Funding Source Not [facility] Eligible 12/06/24 Private Coding Level of Care Code Est Pt Level 3 (76697) Est Pt Prev Care 40-64y(40016) Diagnoses Physical exam Z00.00 Polyarthralgia M25.50 Additional Codes PHQ-9 - 18967 - PHQ-9 Billing: Yes ([id number]) SHELBY-7 Assessment Billing - SHELBY-7 Assessment Tool: SHELBY-7 Assessment 65830 ([id number]) Time Spent (min) 33 Assessment & Plan Assessment & Plan (1) Physical exam: Code(s): Z00.00 - Encounter for general adult medical examination without abnormal findings Category: Medical (2) Polyarthralgia: Code(s): M25.50 - Pain in unspecified joint Category: Medical Plan We plan to pursue laboratory testing to evaluate potential arthritis causing the generalized body pain. Continued use of sumatriptan is recommended for migraine management. We provided the patient with the influenza vaccine during this visit. The patient's previous colonoscopy, Pap smear, and mammogram results indicate they are up to date with these screenings. The patient's allergy to Levaquin will require consideration of alternatives should antibiotic therapy be necessary in the future. Monitoring of depression and past events of myocardial infarction and nephrolithiasis will occur in subsequent follow-ups. Patient was informed and verbally consented to the use of an ambient scribe for clinic note documentation during this visit. I discussed with the patient the need for further investigation into the cause of her generalized body pain, especially considering arthritis. We agreed on laboratory evaluations and spoke on managing migraine symptoms with available medication. She consented to receive the influenza vaccine during the visit, and health maintenance practices were reviewed, including upcoming necessary screenings. The patient is aware of her allergy to Levaquin and understands the implications should antibiotic treatment be required. I highlighted the importance of monitoring her previous cardiac and renal health history. Orders: Orders Rheumatoid Factor Today M25.50 - Pain in unspecified joint Complete Blood Count Auto Diff Today M25.50 - Pain in unspecified joint Comprehensive Met. Panel Today Z00.00 - Encounter for general adult medical examination without abnormal findings XR DEXA axial skeleton Today Z78.0 - Asymptomatic menopausal state TDaP Immunization Today Z23 - Encounter for immunization Cyclic Citrullinated Peptide Today M25.50 - Pain in unspecified joint Erythrocyte Sedimentation Rate Today M25.50 - Pain in unspecified joint C Reactive Protein Today M25.50 - Pain in unspecified joint BRENDA Reflex Titer and Pattern Today M25.50 - Pain in unspecified joint Anti DNA DS Antibody Today M25.50 - Pain in unspecified joint Lipid Panel Today E78.5 - Hyperlipidemia, unspecified, Z00.00 - Encounter for general adult medical examination without abnormal findings Medications: Refilled albuterol sulfate 90 mcg/actuation (Ventolin HFA) 2 puffs inhalation Q4-6H PRN 18 ea 0RF for wheezing R05.8 - Other specified cough calcium carbonate 1,200 mg (2 x 600 mg calcium (1,500 mg)) PO DAILY 90 days 180 tabs 1RF Z00.00 - Encounter for general adult medical examination without abnormal findings cholecalciferol (vitamin D3) 50 mcg PO DAILY 90 days 90 caps 1RF Z00.00 - Encounter for general adult medical examination without abnormal findings fluticasone propionate 50 mcg/actuation (Flonase Allergy Relief) administer into each nostril 1 spray intranasal DAILY 100 mL 0RF J31.0 - Chronic rhinitis Patient Instructions: - Expect to have labs done soon to evaluate for arthritis. - Continue using sumatriptan for migraines as needed. - Received a flu shot today; make note of any reactions. - Await instructions for future colonoscopy in 2026. - Ensure to report any increase in symptoms or new issues promptly. - Keep note of any changes in memory or depression.
[2024-12-06 11:03] VITALS: BP 136/68; BMI 28.5
== END 2024-12-06 11:27 | disposition home or self-care (01) ==
LOC: HO.HMCH 10:59
PROVIDERS: PCP Internal Medicine; Visit Provider Internal Medicine
DX: Z00.00 Encounter for general adult medical examination without abnormal findings (principal); M25.50 Pain in unspecified joint; Z23 Encounter for immunization

== ENCOUNTER → 2024-12-06 10:58 | Outpatient (BNVA) | payer OTHER, SELFPAY | PROVIDERS: PCP Internal Medicine; Visit Provider Internal Medicine | DX: Z00.00 Encounter for general adult medical examination without abnormal findings (principal); M25.50 Pain in unspecified joint; Z23 Encounter for immunization | CPT/HCPCS: 90471; 90715; 96127; 99212; 99396 ==

== ENCOUNTER 2024-12-25 08:27 | Outpatient (REF) | payer OTHER, SELFPAY ==
--- NOTE | ~2024-12-25 | MM_ITS ---
EXAMINATION: DXA BONE DENSITY AXIAL HISTORY: Z78.0 - Asymptomatic menopausal state TECHNIQUE: judo Dual energy absorptiometry (DEXA) of the lumbar spine, total left hip, and femoral neck was performed. COMPARISON: Comparison is made with the prior examination dated 04/16/2022. FINDINGS: The bone mineral density of the lumbar spine is 0.880 with a T-score of -2.5, and a Z-score of -1.3. This is indicative of osteoporosis. This represents a BMD change of -5.8% compared to the prior exam. This is statistically significant. The bone mineral density of the left total hip is 0.819 with a T-score of -1.5, and a Z-score of -0.5. This is indicative of osteopenia. This represents a BMD change of -1.4% compared to the prior exam. This is not statistically significant. The bone mineral density of the left femoral neck is 0.857 with a T-score of -1.3, and a Z-score of -0.1. This is indicative of osteopenia. This represents a BMD change of 4.9% compared to the prior exam. FRACTURE RISK: The FRAX index suggests a ten year probability of major osteoporotic fracture of 4.5%, and of hip fracture 0.4%. MM/XR DEXA axial skeleton IMPRESSION: Based on bone mineral density, and according to World Health Organization (WHO) criteria, the diagnosis is consistent with osteoporosis. All bone density values are in grams per centimeter squared (g/cm2). Statistically, 68% of repeat scans fall within 1 SD (+/- 0.010 g/cm2 for AP spine L1-L4) and 1 SD (+/- 0.012 g/cm2 for femur total) FRAX is a trademark of the [employer]'s [place] for Metabolic Bone Disease, a World Health Organization (WHO) Collaborating Center. Electronically signed by: Garth Magallanes MD 12/25/2024 08:56 AM EDT
== END 2024-12-25 08:28 | disposition home or self-care (01) ==
LOC: HO.MAMMO 08:27
PROVIDERS: Visit Provider Internal Medicine
DX: Z13.820 Encounter for screening for osteoporosis (principal); Z78.0 Asymptomatic menopausal state
CPT/HCPCS: 77080

== ENCOUNTER → 2024-12-25 08:45 | Outpatient (BNV) | payer OTHER, SELFPAY | PROVIDERS: Visit Provider Radiology Diagnostic Radiology | DX: E28.39 Other primary ovarian failure (principal) | CPT/HCPCS: 77080 ==

== ENCOUNTER 2024-12-28 08:37 | Outpatient (REF) | payer OTHER, SELFPAY ==
[2024-12-28 08:59] LABS: MANUAL DIFF FLAG NO
[2024-12-28 09:29] LABS: Hematocrit 40.4 % (37.0-47.0); Hemoglobin 13.5 g/dl (12.0-16.0); Red Blood Count 4.85 X10*6/uL (4.20-5.50); White Blood Count 5.6 X10*3/uL (4.8-10.8)
[2024-12-28 09:30] LABS: Basophils Absolute Auto 0.1 X10*3/uL (0.0-0.2); Basophils Percent Auto 0.9 % (0-2); Eosinophils Absolute Auto 0.1 X10*3/uL (0.0-0.4); Eosinophils Percent Auto 1.1 % (0-4); Hematocrit 40.5 % (37.0-47.0); Hemoglobin 13.4 g/dl (12.0-16.0); Imm Gran Abs Auto 0.01 X10*3/uL (0.00-0.03); Imm Gran Pct Auto 0.2 % (0.0-0.4); Lymphocytes Absolute Auto 2.4 X10*3/uL (1.2-4.9); Lymphocytes Percent Auto 42.7 % (20-40); Mean Corpuscular HGB Conc 33.1 g/dl (31.0-35.0); Mean Corpuscular HGB Conc 33.4 g/dl (31.0-35.0); Mean Corpuscular Hemoglobin 27.7 pg (27.0-33.0); Mean Corpuscular Hemoglobin 27.8 pg (27.0-33.0); Mean Corpuscular Volume 83.3 fL (80.0-98.0); Mean Corpuscular Volume 83.7 fL (80.0-98.0); Mean Platelet Volume 10.1 fL (9.4-12.3); Mean Platelet Volume 9.9 fL (9.4-12.3); Monocytes Absolute Auto 0.4 X10*3/uL (0.1-1.2); Monocytes Percent Auto 7.3 % (2-11); Neutrophils Absolute Auto 2.7 x10*3/uL (2.0-8.3); Neutrophils Percent Auto 47.8 % (45-73); Platelet Count 281 X10*3/uL (160-400); Platelet Count 284 X10*3/uL (160-400); Red Blood Count 4.84 X10*6/uL (4.20-5.50); Red Cell Distribution Width 12.8 % (11.0-16.0); White Blood Count 5.6 X10*3/uL (4.8-10.8)
[2024-12-28 10:02] LABS: Alanine Aminotransferase 22 U/L (0-31); Albumin Level 4.5 g/dL (3.5-5.0); Alkaline Phosphatase 87 U/L (39-117); Anion Gap 11 (12-20); Aspartate Amino Transferase 20 U/L (5-31); Bilirubin Direct 0.1 mg/dL (0.0-0.5); Bilirubin Total 0.4 mg/dL (0.0-1.0); Blood Urea Nitrogen 12 mg/dL (9-16); Calcium 9.4 mg/dL (8.4-10.2); Carbon Dioxide 26 mmol/L (22-29); Chloride 108 mmol/L (96-108); Cholesterol 263 mg/dL (<200); Estimated Glomerular Filt Rate > 60; Glucose Random 87 mg/dL (60-115); HDL Cholesterol 58 mg/dL (>40); LDL Cholesterol Calculated 176 mg/dL (<100); Potassium 4.2 mmol/L (3.3-5.1); Sodium 141 mmol/L (135-145); Total Protein 7.5 g/dL (6.5-8.0); Triglycerides 146 mg/dL (<150)
[2024-12-28 10:08] LABS: Erythrocyte Sedimentation Rate 12 MM/HR (0-20)
[2024-12-28 10:13] LABS: Rheumatoid Factor < 13.0 IU/mL (<15.0)
[2024-12-28 10:25] LABS: TSH reflex Free T4 0.91 uIU/mL (0.32-4.0)
[2025-01-01 15:44] LABS: Cyclic Citrullinated Peptide <16 UNITS
[2025-01-01 17:17] LABS: Immunoglobulin A 379 mg/dL (70-320)
[2025-01-01 21:38] LABS: Anti DNA DS Antibody <1 IU/mL
[2025-01-02 15:02] LABS: Anti Nuclear Antibody Screen NEGATIVE (NEGATIVE)
[2025-01-02 15:17] LABS: Transglutaminase IgA <1.0 U/mL
== END 2024-12-28 08:38 | disposition home or self-care (01) ==
LOC: HO.LAB 08:37
PROVIDERS: Internal Medicine; PCP Internal Medicine; Visit Provider Internal Medicine
DX: Z00.00 Encounter for general adult medical examination without abnormal findings (principal); R10.9 Unspecified abdominal pain; E78.5 Hyperlipidemia, unspecified; M25.50 Pain in unspecified joint
CPT/HCPCS: 36415; 80053; 80061; 82248; 82784; 84443; 85025; 85027; 85652; 86038; 86140; 86200; 86225; 86364; 86431

== ENCOUNTER 2025-01-23 23:03 | Emergency (ER) | payer OTHER, SELFPAY ==
[2025-01-23 23:05] VITALS: BP 148/65; PULSE 73; RESP 20; TEMP 36.2; O2SAT 98; BMI 28.9
[2025-01-23 23:18] LABS: Basophils Absolute Auto 0.1 X10*3/uL (0.0-0.2); Basophils Percent Auto 0.5 % (0-2); Eosinophils Absolute Auto 0.1 X10*3/uL (0.0-0.4); Eosinophils Percent Auto 1.2 % (0-4); Hematocrit 36.4 % (37.0-47.0); Hemoglobin 12.6 g/dl (12.0-16.0); Imm Gran Abs Auto 0.03 X10*3/uL (0.00-0.03); Imm Gran Pct Auto 0.3 % (0.0-0.4); Lymphocytes Absolute Auto 3.7 X10*3/uL (1.2-4.9); Lymphocytes Percent Auto 37.7 % (20-40); MANUAL DIFF FLAG NO; Mean Corpuscular HGB Conc 34.6 g/dl (31.0-35.0); Mean Corpuscular Hemoglobin 28.3 pg (27.0-33.0); Mean Corpuscular Volume 81.8 fL (80.0-98.0); Mean Platelet Volume 9.7 fL (9.4-12.3); Monocytes Absolute Auto 0.8 X10*3/uL (0.1-1.2); Monocytes Percent Auto 8.3 % (2-11); Neutrophils Absolute Auto 5.1 x10*3/uL (2.0-8.3); Platelet Count 254 X10*3/uL (160-400); Red Blood Count 4.45 X10*6/uL (4.20-5.50); Red Cell Distribution Width 12.7 % (11.0-16.0); White Blood Count 9.9 X10*3/uL (4.8-10.8)
[2025-01-23 23:33] LABS: Alanine Aminotransferase 44 U/L (0-31); Albumin Level 4.2 g/dL (3.5-5.0); Alkaline Phosphatase 96 U/L (39-117); Anion Gap 8 (12-20); Aspartate Amino Transferase 29 U/L (5-31); Bilirubin Total 0.1 mg/dL (0.0-1.0); Blood Urea Nitrogen 10 mg/dL (9-16); Calcium 9.3 mg/dL (8.4-10.2); Carbon Dioxide 27 mmol/L (22-29); Chloride 110 mmol/L (96-108); Creatinine Clr Calc Pharmacy 90.6; Estimated Glomerular Filt Rate > 60; Glucose Random 95 mg/dL (60-115); Potassium 4.1 mmol/L (3.3-5.1); Sodium 141 mmol/L (135-145)
[2025-01-24 04:17] VITALS: BP 144/70; PULSE 69; RESP 16; TEMP 36.4; O2SAT 98
[2025-01-24 04:55] LABS: Lipase 21 U/L (8-78)
--- NOTE | 2025-01-24 05:42 | ED_ITS ---
HPI - Abdominal Pain General Chief Complaint: Abdominal Pain Stated Complaint: abd pain Time Seen by Provider: 01/24/25 04:36 Source: patient Mode of arrival: ambulatory Limitations: no limitations History of Present Illness ED Provider: Dr. Ariella Valle HPI narrative: patient comes to the emergency room complaining of epigastric burning sensation. Patient states that she has had this for months. Patient has been seen by Gastroenterology. Patient takes Protonix. Patient states that yesterday she had an endoscopy scheduled. However, patient ingested coffee just prior to her endoscopy and had to be canceled and rescheduled. Patient denies any nausea vomiting or diarrhea, venous any chest pain. Patient states that she has intense burning sensation Related Data Previous Rx's ?Medication ?Instructions ?Recorded sumatriptan succinate 100 mg tablet 100 mg PO ONCE PRN migraine 09/18/23 headache 30 days #9 tabs cyclobenzaprine 5 mg tablet 5 mg PO TID PRN muscle spa sm #14 01/30/24 tabs hydrochlorothiazide 12.5 mg tablet 12.5 mg PO DAILY 90 days #90 tabs 08/13/24 famotidine 20 mg tablet 20 mg PO DAILY PRN heartburn 90 10/19/24 days #90 tabs calcium carbonate 1,200 mg (2 x 600 mg calcium 12/06/24 (1,500 mg)) PO DAILY 90 days #180 tabs cholecalciferol (vitamin D3) 50 50 mcg PO DAILY 90 day s #90 caps 12/06/24 mcg (2,000 unit) capsule fluticasone propionate 50 1 spray intranasal DAILY #10 0 mL 12/06/24 mcg/actuation nasal spray,suspension (Flonase Allergy Relief) albuterol sulfate 90 mcg/actuation 2 puff inhalation Q 4-6H PRN for 01/06/25 aerosol inhaler (Ventolin HFA) wheezing #18 ea pantoprazole 20 mg tablet,delayed 20 mg PO BEDTIME #90 tabs 01/23/25 release sucralfate 1 gram tablet 1 g PO BID #60 tabs 01/24/25 Allergies Allergy/AdvReac Type Severity Reaction Status Date / Time levofloxacin (From LEVAQUIN) Allergy Intermediate HIVES,REDDN Verified 01/23/25 23:07 ESS,ITCHINE SS PMFSH Past Medical History Medical History Breast cyst Cyst of left breast Breast thickening Breast pain Subcutaneous mass of back Herpes zoster Carpal tunnel syndrome Mild recurrent major depression Migraines Hypovitaminosis D Pure hypercholesterolemia Allergic rhinitis Renal calculi Fibromyalgia Overweight GERD (gastroesophageal reflux disease) Surgical History Hx of colonoscopy History of carpal tunnel release History of kidney stones Family History Family History Father No problems noted. Mother Hypertension Congestive heart failure ESRD on hemodialysis Social History Social History Housing: House Alcohol intake: former Year quit: 2006 Patient Tobacco Use Status: Former Tobacco user Years Smoked: 30 +/- Smoked in Last 30 Days: No e-Cigarette/Vaping Use: Never Used Second Hand Smoke Exposure: No Use of substances other than those prescribed or required for medical reasons: No Advance Directives: No Patient : No service: No Current occupational status: unemployed Cognitive needs: No Hearing needs: No Vision needs: Yes Physical Exam ED Vital Signs: Vital Signs - 24 hr 01/23/25 23:05 01/24/25 04:17 Temperature 97.2 F 97.5 F Pulse Rate 73 69 Respiratory Rate 20 16 Blood Pressure 148/65 H 144/70 H Pulse Oximetry 98 98 Oxygen Delivery Method Room Air Room Air BMI result Body Mass Index 28.9 Const Other: Appearance: Alert. Oriented X3. No acute distress. patient well-appearing Eyes: Pupils equal, round and reactive to light. ENT: Pharynx normal. Neck: Normal inspection. Neck supple. No lymph nodes noted. No crepitus CVS: Normal heart rate and rhythm. Pulses normal. Normal S1 and S2 Respiratory: No respiratory distress. Breath sounds normal. No Wheezing. No rales Abdomen: Soft , no tenderness to palpation over the epigastric or periumbilical pain, negative Bermeo's sign. No CVA tenderness bilaterally to palpation. No rigidity. No distention. Skin: Skin warm and dry. Normal skin color. Normal skin turgor. Extremities: No lower extremity edema. No Lacerations. No Rash Neuro: Oriented X 3. No motor deficit. No sensory deficit. Moving all extremities. No slurred speech. CN 2 through 12 grossly intact Psych: calm, cooperative, normal affect Course Course Course Narrative: I reviewed patient's Gastroenterology notes from Dr. Montano. patient was seen on 10/22/2024. Seems that patient has gastritis started as patient was taking meloxicam daily. Patient was asked to discontinue taking NSAIDs, only take Tylenol as needed, patient was started on pantoprazole. And as mentioned above, patient was supposed to get an endoscopy yesterday but patient drank coffee a few hours prior to her endoscopy at this time, patient receiving a GI cocktail to help with the discomfort. Medical Decision Making Medical Decision Making [facility] Narrative: My interpretation of labs: No significant abnormality in patient's hematology and chemistry, no significant abnormality in patient's LFTs, lipase patient receiving a GI cocktail. Physical exam is reassuring, no abdominal pain to palpation in any of the quadrants or McBurney's point My interpretation of EKG: Normal sinus rhythm, heart rate 66, no ST segment depression or elevation, no T-wave inversion, QTC 446 after GI cocktail, patient states that she feels much better, patient states that she no longer feels the acidity in her stomach. Patient feels well to go home. Abdominal pain. patient's physical exam after the GI cocktail is reassuring. No abdominal pain. Perforation is not suspected. Differential Diagnosis Differential Diagnoses: The differential diagnosis associated with the presentation includes ( peptic ulcer disease, gastritis, esophagitis) Lab Data [facility] Lab Attestation statement: I reviewed the patient's lab results. 01/23/25 23:13 01/23/25 23:13 Labs: Lab Results 01/23/25 Range/Units 23:13 WBC 9.9 (4.8-10.8) X10*3/uL RBC 4.45 (4.20-5.50) X10*6/uL Hgb 12.6 (12.0-16.0) g/dl Hct 36.4 L (37.0-47.0) % MCV 81.8 (80.0-98.0) fL MCH 28.3 (27.0-33.0) pg MCHC 34.6 (31.0-35.0) g/dl RDW 12.7 (11.0-16.0) % Plt Count 254 (160-400) X10*3/uL MPV 9.7 (9.4-12.3) fL Immature Gran % (Auto) 0.3 (0.0-0.4) % Neut % (Auto) 52.0 (45-73) % Lymph % (Auto) 37.7 (20-40) % [place] % (Auto) 8.3 (2-11) % Eos % (Auto) 1.2 (0-4) % Baso % (Auto) 0.5 (0-2) % Lymph # (Auto) 3.7 (1.2-4.9) X10*3/uL [place] # (Auto) 0.8 (0.1-1.2) X10*3/uL Eos # (Auto) 0.1 (0.0-0.4) X10*3/uL Baso # (Auto) 0.1 (0.0-0.2) X10*3/uL Abs Immat Gran (auto) 0.03 (0.00-0.03) X10*3/uL Absolute Neuts (auto) 5.1 (2.0-8.3) x10*3/uL Absolute Nucleated RBC 0.000 (0.0-0.012) X10*3/uL Nucleated RBC % (auto) 0.0 (0.0-0.2) /100WBC Sodium 141 (135-145) mmol/L Potassium 4.1 (3.3-5.1) mmol/L Chloride 110 H (96-108) mmol/L Carbon Dioxide 27 (22-29) mmol/L Anion Gap 8 L (12-20) BUN 10 (9-16) mg/dL Creatinine 0.62 (0.5-1.4) mg/dL Estim Creat Clear Calc 90.6 Estimated GFR > 60 Random Glucose 95 (60-115) mg/dL Calcium 9.3 (8.4-10.2) mg/dL Total Bilirubin 0.1 (0.0-1.0) mg/dL AST 29 (5-31) U/L ALT 44 H (0-31) U/L Alkaline Phosphatase 96 (39-117) U/L Total Protein 7.0 (6.5-8.0) g/dL Albumin 4.2 (3.5-5.0) g/dL Lipase 21 (8-78) U/L Medications Administered Discontinued Medications Generic Name Dose Route Start Last Admin Trade Name Freq PRN Reason Stop Dose Admin Al Hydroxide/Mg Hydroxide 30 ml 01/24/25 05:40 01/24/25 06:02 Magnesium Hydrox/Alum Hydrox 30 Ml Oral.Susp PO 01/24/25 05:41 30 ml ONCE ONE Administration Famotidine 20 mg 01/24/25 05:40 01/24/25 06:02 Famotidine 20 Mg Tablet PO 01/24/25 05:41 20 mg ONCE ONE Administration Lidocaine HCl 15 ml 01/24/25 05:40 01/24/25 06:02 Lidocaine Hcl Viscous 2 % 15 Ml Solution MUCOUS MEM 01/24/25 05:41 15 ml ONCE ONE Administration Discharge Plan Discharge Clinical Impression: Gastritis Patient Disposition: Home, Self-Care Instructions: Gastritis (ED), Diet for Stomach Ulcers and Gastritis (ED) Additional Instructions: Please follow-up with your primary care physician tomorrow. please follow-up with your technician's helper, you may have to stop taking this medication before your endoscopy. If you have any worsening or new symptoms, please return to the emergency room or call 911 Prescriptions: New sucralfate 1 gram tablet 1 g PO BID Qty: 60 1RF No Action sumatriptan succinate 100 mg tablet 100 mg PO ONCE PRN (Reason: migraine headache) 30 Days Qty: 9 2RF Rx Instructions: do not exceed 2 doses per 24 hrs hydrochlorothiazide 12.5 mg tablet 12.5 mg PO DAILY 90 Days Qty: 90 0RF famotidine 20 mg tablet 20 mg PO DAILY PRN (Reason: heartburn) 90 Days Qty: 90 1RF albuterol sulfate [Ventolin HFA] 90 mcg/actuation HFA aerosol inhaler 2 puff inhalation Q4-6H PRN (Reason: for wheezing) Qty: 18 0RF pantoprazole 20 mg tablet,delayed release (DR/EC) 20 mg PO BEDTIME Qty: 90 0RF cyclobenzaprine 5 mg tablet 5 mg PO TID PRN (Reason: muscle spasm) Qty: 14 0RF calcium carbonate 600 mg calcium (1,500 mg) tablet 1,200 mg PO DAILY 90 Days Qty: 180 1RF cholecalciferol (vitamin D3) 50 mcg (2,000 unit) capsule 50 mcg PO DAILY 90 Days Qty: 90 1RF fluticasone propionate [Flonase Allergy Relief] 50 mcg/actuation spray,suspension 1 spray intranasal DAILY Qty: 100 0RF Rx Instructions: administer into each nostril Print Language: Japanese
--- NOTE | 2025-01-24 05:54 | ECG_ITS ---
Test Reason : EPIGASTRIC PAIN Blood Pressure : */* mmHG Vent. Rate : 66 BPM Atrial Rate : 66 BPM P-R Int : 154 ms QRS Dur : 70 ms QT Int : 426 ms P-R-T Axes : 62 35 59 degrees QTcB Int : 446 ms Normal sinus rhythm Nonspecific T wave abnormality Abnormal ECG When compared with ECG of 23-Apr-2022 09:39, No significant change was found Referred By: Ariella Valle Electronically Signed By: Nathan Jimenez
[2025-01-24] MEDS: Lidocaine HCl Viscous 2 % 15 ML SOLUTION MUCOUS MEM (06:02)
[2025-01-24] MEDS: Famotidine 20 MG TABLET PO (06:02)
[2025-01-24] MEDS: Magnesium Hydrox/Alum Hydrox 30 ML ORAL.SUSP PO (06:02)
[2025-01-24 06:37] VITALS: BP 135/66; PULSE 63; RESP 16; TEMP 36.5; O2SAT 97
[2025-01-24 06:57] VITALS: BP 135/66; PULSE 63; RESP 16; TEMP 36.5; O2SAT 97
== END 2025-01-24 06:59 | disposition home or self-care (01) ==
PROVIDERS: Emergency Provider Emergency Medicine; PCP Internal Medicine
DX: K29.70 Gastritis, unspecified, without bleeding (principal); R10.9 Unspecified abdominal pain; Z79.899 Other long term (current) drug therapy
CPT/HCPCS: 36415; 80053; 83690; 85025; 93005; 99283; 99284

== ENCOUNTER → 2025-01-24 05:54 | Outpatient (BNV) | payer OTHER, SELFPAY | PROVIDERS: Emergency Provider Emergency Medicine; PCP Internal Medicine; Visit Provider Internal Medicine Cardiovascular Disease | DX: R94.31 Abnormal electrocardiogram [ECG] [EKG] (principal); R10.13 Epigastric pain | CPT/HCPCS: 93010 ==

== ENCOUNTER 2025-03-07 15:37 | Emergency (ER) | payer OTHER, SELFPAY ==
--- NOTE | ~2025-03-07 | XR_ITS ---
EXAMINATION: XR FOOT, RIGHT CLINICAL INFORMATION: stubbed right 5th toe COMPARISON: None available. TECHNIQUE: AP, lateral, and oblique views of the right foot. FINDINGS: There is a mild dislocation of the PIP joint of the fifth digit. No definite fracture is noted. Otherwise, no additional dislocation or fracture identified. There is normal alignment. Joint spaces are preserved. Normal plantar arch. Normal soft tissues. XR/XR foot RT min 3V IMPRESSION: Mild dislocation of the PIP joint of the fifth digit. No definite fracture evident. Electronically signed by: Richie Doyle MD 03/07/2025 04:11 PM EDT
--- NOTE | ~2025-03-07 | XR_ITS ---
EXAMINATION: XR TOES, RIGHT CLINICAL INFORMATION: post 5th toe relocation COMPARISON: X-ray performed 34 minutes earlier TECHNIQUE: 3 views of the right toes were obtained. FINDINGS: There is coalition of the middle and distal phalanx of the fifth digit. There is mild asymmetry of the joint with lateral narrowing. No dislocation is identified. No fracture is seen. XR/XR toe RT min 2V IMPRESSION: Mild asymmetry of the IP joint of the fifth digit, no dislocation. Electronically signed by: Anibal Lopez MD 03/07/2025 04:46 PM EDT
[2025-03-07 15:47] VITALS: BP 138/72; PULSE 65; RESP 18; O2SAT 99; BMI 29.2
--- NOTE | 2025-03-07 15:47 | ED_ITS ---
HPI - General Adult General Chief complaint: Extremity Injury, Lower Stated complaint: right foot, fifth toe injury Time Seen by Provider: 03/07/25 15:43 Source: patient Mode of arrival: ambulatory Limitations: no limitations History of Present Illness ED Provider: RACHEL MCLAUGHLIN PA-C HPI narrative: 64 year old female with pmhx significant fort GERD, HTN, presents to the ED for evaluation of right 5th toe pain. Patient states she was walking through her basement when she stubbed her right 5th toe on a treadmill. She did not fall to the ground. Denies head strike or LOC. Reports immediate pain to the right 5th toe, radiating up her right foot. Pain on ambulation. Denies any numbness/tingling/weakness of the right lower extremity. Denies any other injuries. Admits to trialing tiger balm and Tylenol prior to arrival. Related Data Previous Rx's ?Medication ?Instructions ?Recorded sumatriptan succinate 100 mg tablet 100 mg PO ONCE PRN migraine 09/18/23 headache 30 days #9 tabs cyclobenzaprine 5 mg tablet 5 mg PO TID PRN muscle spa sm #14 01/30/24 tabs hydrochlorothiazide 12.5 mg tablet 12.5 mg PO DAILY 90 days #90 tabs 08/13/24 famotidine 20 mg tablet 20 mg PO DAILY PRN heartburn 90 10/19/24 days #90 tabs calcium carbonate 1,200 mg (2 x 600 mg calcium 12/06/24 (1,500 mg)) PO DAILY 90 days #180 tabs cholecalciferol (vitamin D3) 50 50 mcg PO DAILY 90 day s #90 caps 12/06/24 mcg (2,000 unit) capsule fluticasone propionate 50 1 spray intranasal DAILY #10 0 mL 12/06/24 mcg/actuation nasal spray,suspension (Flonase Allergy Relief) pantoprazole 20 mg tablet,delayed 20 mg PO BEDTIME #90 tabs 01/23/25 release sucralfate 1 gram tablet 1 g PO BID #60 tabs 01/24/25 albuterol sulfate 90 mcg/actuation 2 puff inhalation Q 4-6H PRN for 02/12/25 aerosol inhaler (Ventolin HFA) wheezing #18 ea Allergies Allergy/AdvReac Type Severity Reaction Status Date / Time levofloxacin (From LEVAQUIN) Allergy Intermediate HIVES,REDDN Verified 03/07/25 15:51 ESS,ITCHINE SS Review of Systems Review of Systems: Constitutional: No fever, chills, fatigue, night sweats, weight changes ENT/Mouth: No ear pain, hearing loss, nasal congestion, sinus pain, rhinorrhea, sore throat Eyes: No eye pain, swelling, redness, vision changes, discharge Cardio: No chest pain, palpitations, GOTTLIEB, orthopnea, peripheral edema Pulm: No SOB, cough, sputum, wheezing, dyspnea, hemoptysis GI: No nausea, vomiting, hematemesis, abdominal pain, diarrhea, constipation, hematochezia, melena : No irregular bleeding, dysuria, frequency, urgency, hesitancy, hematuria, flank pain, urinary flow changes, urinary incontinence or retention MSK: No back pain, neck pain, joint pain, myalgias, +right 5th toe pain Skin: No lesions, rashes Neuro: No weakness, numbness, paresthesias, LOC, dizziness, headache Psych: No anxiety/panic, depression, SI/HI, AH/VH All other systems reviewed and are negative. [facility] Past Medical History Attestation statement: The following information was validated with the patient. Source: old records reviewed and nursing notes reviewed Medical History Breast cyst Cyst of left breast Breast thickening Breast pain Subcutaneous mass of back Herpes zoster Carpal tunnel syndrome Mild recurrent major depression Migraines Hypovitaminosis D Pure hypercholesterolemia Allergic rhinitis Renal calculi Fibromyalgia Overweight GERD (gastroesophageal reflux disease) Surgical History Hx of colonoscopy History of carpal tunnel release History of kidney stones Family History Family History Father No problems noted. Mother Hypertension Congestive heart failure ESRD on hemodialysis Social History Social History Housing: House Alcohol intake: former Year quit: 2006 Patient Tobacco Use Status: Former Tobacco user Years Smoked: 30 +/- Smoked in Last 30 Days: No e-Cigarette/Vaping Use: Never Used Second Hand Smoke Exposure: No Use of substances other than those prescribed or required for medical reasons: No Advance Directives: No Advance Directives Information Provided: Yes Do you have a plan to hurt others: No Plan service: No Current occupational status: unemployed Cognitive needs: No Hearing needs: No Vision needs: Yes Physical Exam ED Vital Signs: Vital Signs - 24 hr 03/07/25 15:47 03/07/25 15:52 Pulse Rate 65 65 Respiratory Rate 18 18 Blood Pressure 138/72 138/72 Pulse Oximetry 99 99 Oxygen Delivery Method Room Air Room Air BMI result Body Mass Index 29.2 vital signs stable General: Well appearing, in no acute distress. Skin: Warm, dry, intact. No rashes or lesions. Head: Normocephalic, atraumatic. EENT: Hearing is intact b/l. Conjunctiva clear. Sclera is anicteric. PERRLA. EOM intact. Moist mucous membranes.? Cardiac: Chest wall symmetric. RRR Lungs: Normal respiratory effort without accessory muscle use. CTA bilaterally Abdomen: Soft, non-tender, non-distended. No rebound tenderness or guarding. Positive BS x4. Ext: +right 5th toe without noted deformity. No overlying skin changes or abrasions. Pain with movement of the right 5th digit. Tender to palpation. Right foot warm, 2+ DP and PT pulse intact. Neuro: AOx3. Normal speech. Psych: Appropriate mood and affect. Responds appropriately to questions. Course Course Course Narrative: Right foot x-ray showing mild dislocation of the PIP joint of the 5th digit without definitive fracture. Attempted relocation with manual manipulation. Post reduction films show mild asymmetry of the IP joint of the 5th digit without acute dislocation. No fracture. > patient medicated with Motrin in the ED. placed in postop shoe. Advised to follow up with PCP and or ortho outpatient. Patient has remained stable throughout ED visit today. Discussed worrisome signs and symptoms and when to return to the ED. All questions answered at this time. Patient is agreeable with disposition and stable for discharge. Medications Administered Discontinued Medications Generic Name Dose Route Start Last Admin Trade Name Valenteq PRN Reason Stop Dose Admin Ibuprofen 800 mg 03/07/25 15:58 03/07/25 16:06 Ibuprofen 800 Mg Tablet PO 03/07/25 15:59 800 mg ONCE ONE Administration Procedures Orthopedic Joint Reduction Joint #1: Time Out Performed: Yes Side: right Joint Reduction Location: toe Analgesia: none Technique used: direct manipulation Post-reduction neuro exam: intact Post-reduction vascular: intact Post Reduction X-Ray Obtained: Yes Post Reduction X-Ray Results: reduced Splint Applied: No (post-op shoe) Patient Tolerated Procedure: well Orthopedic Splinting/Casting Injury #1: Side: right Lower Extremity Injury Location: toe Lower Extremity Immobilizer: post-op shoe Medical Decision Making Medical Decision Making MDM Narrative: 64 year old female with pmhx significant [place] GERD, HTN, presents to the ED for evaluation of right 5th toe pain. vital signs stable. she is tearful. otherwise in NAD. on exam, right 5th toe without noted deformity. No overlying skin changes or abrasions. Pain with movement of the right 5th digit. Tender to palpation. Right foot warm, 2+ DP and PT pulse intact. Differential diagnosis includes contusion, fracture, arthritis. Unlikely neurovascular compromise, threat to limb, compartment syndrome. Presentation not consistent with gout, pseudogout. Plan for x-rays, pain control, re-evaluation. Differential Diagnosis Differential Diagnoses: The differential diagnosis associated with the presentation includes as above. Admission/Observation not indicated. Independent Interpretation I performed an independent interpretation of an: Plain X-Ray Interpretation: xr right foot without fracture, dislocation of 5th PIP post-reuduction xr showing no dislocation of 5th pip Radiology Impression Discussion of test interpretation with radiology: I have reviewed the radiologist's reading. Radiologist Impression: Date of Service: 03/07/25 Procedure(s): XR toe RT min 2V Accession Number(s): [id number] cc: Rachel Mclaughlin; Brenda Nunez MD~ EXAMINATION: XR TOES, RIGHT CLINICAL INFORMATION: post 5th toe relocation COMPARISON: X-ray performed 34 minutes earlier TECHNIQUE: 3 views of the right toes were obtained. FINDINGS: There is coalition of the middle and distal phalanx of the fifth digit. There is mild asymmetry of the joint with lateral narrowing. No dislocation is identified. No fracture is seen. XR/XR toe RT min 2V IMPRESSION: Mild asymmetry of the IP joint of the fifth digit, no dislocation. Electronically signed by: Anibal Lopez MD 03/07/2025 04:46 PM EDT Date of Service: 03/07/25 Procedure(s): XR foot RT min 3V Accession Number(s): [id number] cc: Rachel Mclaughlin; Brenda Nunez MD~ EXAMINATION: XR FOOT, RIGHT CLINICAL INFORMATION: stubbed right 5th toe COMPARISON: None available. TECHNIQUE: AP, lateral, and oblique views of the right foot. FINDINGS: There is a mild dislocation of the PIP joint of the fifth digit. No definite fracture is noted. Otherwise, no additional dislocation or fracture identified. There is normal alignment. Joint spaces are preserved. Normal plantar arch. Normal soft tissues. XR/XR foot RT min 3V IMPRESSION: Mild dislocation of the PIP joint of the fifth digit. No definite fracture evident. Electronically signed by: Richie Doyle MD 03/07/2025 04:11 PM EDT RP Independent Historian Clinical information obtained from an independent historian. History obtained from or confirmed by: Spouse External Record Review External record reviewed: Inpatient record Prescription Management I considered prescription management with: Pain Medication Social Determinants Patient?s care significantly limited by Social Determinants of Health including: Other Social Determinant of Health Critical Care Time Critical Care Time Critical Care Time: No Discharge Plan Discharge Clinical Impression: Closed dislocation of fifth toe Patient Disposition: Home, Self-Care Instructions: Post Surgical Shoe (ED) Additional Instructions: You were evaluated in the ED today for right pinky toe pain after stubbing the toe. Your x-rays showed a mild dislocation. Your toe was pulled back into place. You have been provided with a postop shoe to wear over the next week to help take pressure off of this toe. Take Motrin and Tylenol at home for pain/discomfort. You may also apply ice to the area for 20 minutes at a time. Follow up with orthopedics outpatient. You have been provided with a referral. Call them to establish care. They will not call you. Return with any new or worsening symptoms. In the case of an emergency call 911. Prescriptions: No Action sumatriptan succinate 100 mg tablet 100 mg PO ONCE PRN (Reason: migraine headache) 30 Days Qty: 9 2RF Rx Instructions: do not exceed 2 doses per 24 hrs hydrochlorothiazide 12.5 mg tablet 12.5 mg PO DAILY 90 Days Qty: 90 0RF famotidine 20 mg tablet 20 mg PO DAILY PRN (Reason: heartburn) 90 Days Qty: 90 1RF pantoprazole 20 mg tablet,delayed release (DR/EC) 20 mg PO BEDTIME Qty: 90 0RF albuterol sulfate [Ventolin HFA] 90 mcg/actuation HFA aerosol inhaler 2 puff inhalation Q4-6H PRN (Reason: for wheezing) Qty: 18 0RF cyclobenzaprine 5 mg tablet 5 mg PO TID PRN (Reason: muscle spasm) Qty: 14 0RF sucralfate 1 gram tablet 1 g PO BID Qty: 60 1RF calcium carbonate 600 mg calcium (1,500 mg) tablet 1,200 mg PO DAILY 90 Days Qty: 180 1RF cholecalciferol (vitamin D3) 50 mcg (2,000 unit) capsule 50 mcg PO DAILY 90 Days Qty: 90 1RF fluticasone propionate [Flonase Allergy Relief] 50 mcg/actuation spray,suspension 1 spray intranasal DAILY Qty: 100 0RF Rx Instructions: administer into each nostril Referrals: [facility] [place] [facility] [Provider Group] Brenda Nunez MD [Primary Care Provider, Internal Medicine] Print Language: Hebrew
[2025-03-07 15:52] VITALS: BP 138/72; PULSE 65; RESP 18; O2SAT 99
--- NOTE | 2025-03-07 15:56 | PC.NURSE ---
64 F presents to ED with R baby toe pain, 10/10 after stubbing toe on end of treadmill at home. Pt sts pain radiates up to R thigh. No other complaints. RR even and unlabored, denies SOB or CP. Right foot is warm, CSMs present.
--- NOTE | 2025-03-07 16:07 | PC.NURSE ---
xray performed pt medicated per order, call carter within reach, plan of care ongoing
[2025-03-07 17:15] VITALS: BP 138/72; PULSE 65; RESP 18; TEMP 36.8; O2SAT 99
== END 2025-03-07 17:15 | disposition home or self-care (01) ==
PROVIDERS: Emergency Provider Emergency Medicine Emergency Medical Services; PCP Internal Medicine
DX: S92.531A Displaced fracture of distal phalanx of right lesser toe(s), initial encounter for closed fracture (principal); M79.674 Pain in right toe(s); X58.XXXA Exposure to other specified factors, initial encounter; Y93.9 Activity, unspecified; Y92.9 Unspecified place or not applicable; Y99.8 Other external cause status; Z87.891 Personal history of nicotine dependence
CPT/HCPCS: 28515; 73630; 73660; 99284

== ENCOUNTER → 2025-03-07 15:55 | Outpatient (BNV) | payer OTHER, SELFPAY | PROVIDERS: Emergency Provider Emergency Medicine Emergency Medical Services; PCP Internal Medicine; Visit Provider Radiology Diagnostic Radiology | DX: S93.114A Dislocation of interphalangeal joint of right lesser toe(s), initial encounter (principal); M20.5X1 Other deformities of toe(s) (acquired), right foot | CPT/HCPCS: 73630 ==

== ENCOUNTER 2025-04-29 13:06 | Outpatient (AMB) | payer OTHER, SELFPAY ==
[2025-04-29 13:19] VITALS: BMI 28.5
--- NOTE | 2025-04-29 13:19 | MHC.OFFVIS ---
Vital Signs 04/29/25 13:19 Height 5 ft 3 in Weight 161 lb BMI 28.5 Intake Visit Reasons: New Pt- right foot pain Intake Note: Anastasia is a 64 year old female who presents today as a new patient for an evaluation of her right foot pain. She was seen at the ED on 03/07/25 for a dislocation of the right 5th toe due to stubbing it on a treadmill. Her toe was pulled back into place at the ED and she was provided a post op shoe to assist in ambulating. Patient reports She has been taking Tylenol and Mortin for her pain as needed and found relief . Patient is no longer using the post op shoe however she feels that her pain has improved since the incident occured. Foot Xray IMPRESSION: Mild dislocation of the PIP joint of the fifth digit. No definite fracture evident. Toe Xray IMPRESSION: Mild asymmetry of the IP joint of the fifth digit, no dislocation. Allergies levofloxacin (From LEVAQUIN) Allergy (Intermediate, Verified 04/29/25 13:19) HIVES,REDDNESS,ITCHINESS HPI Comments Details: The patient is a 64-year-old female with a past medical history as seen below presenting for evaluation of a toe dislocation to the right foot. Patient was accompanied by her spouse who assisted in providing Greek translation. The patient states she was on the treadmill and fell resulting in an injury to the right 5th toe in February. She states she visited the ED and had x-rays done which exhibited a dislocation of the toe without fracture. She states the toe was reduced and she was given a postop shoe. Initially, the patient experienced swelling and bruising, which has since subsided. The patient reports intermittent minimal pain, particularly when pressure is applied to the tip of the toe, though the pain has been decreasing over time. She denies any other pedal concerns. She denies any current or new inciting injuries. She denies any current nausea, vomiting, fever, or chills. [facility] Medical History (Updated 04/29/25 @ 13:56 by Keena Wood DPM) Dislocation of fifth toe, right, closed Injury of right toe Toe pain, right Breast cyst Cyst of left breast Breast thickening Breast pain Subcutaneous mass of back Herpes zoster Carpal tunnel syndrome Mild recurrent major depression Migraines Hypovitaminosis D Pure hypercholesterolemia Allergic rhinitis Renal calculi Fibromyalgia Overweight GERD (gastroesophageal reflux disease) Surgical History Hx of colonoscopy History of carpal tunnel release History of kidney stones Family History Father No problems noted. Mother Hypertension Congestive heart failure ESRD on hemodialysis Social History Housing: House Alcohol intake: former Year quit: 2006 Patient Tobacco Use Status: Former Tobacco user Years Smoked: 30 +/- e-Cigarette/Vaping Use: Never Used Second Hand Smoke Exposure: No service: No Current occupational status: unemployed Cognitive needs: No Hearing needs: No Vision needs: Yes Review of Systems Const Details: - Musculoskeletal: Reports intermittent minimal pain in the right 5th toe, denies persistent swelling or bruising. All systems reviewed & are unremarkable except as noted in HPI and below Physical Exam Vital Signs: BMI result Body Mass Index 28.5 Extrem Other: Right lower extremity focused physical exam: Derm: No open lesions, abrasions, or wounds noted. No ecchymosis or erythema noted. No edema noted. Skin supple and turgor within normal limits. No clinical signs of infection. Vascular: DP/PT pulses palpable. Capillary refill time less than 3 seconds. Temperature gradient warm to warm. Pedal hair absent. No varicosities noted. Neuro: Protective sensation is grossly intact. MSK: Minimal pain on palpation to the distal tip of the 5th toe. Minimal pain noted with range of motion to the right 5th toe, mostly noted to plantar flexion of the toe. No crepitus noted. Range of motion of the forefoot, hindfoot, and ankle within normal limits. Ankle/foot/toe images:  1. Results Reviewed Results Reviewed: Podiatry read of Right foot and toe x-rays (03/07/25): Mild Lateral translation with minimal plantar translation of the 5th distal phalanx noted. No acute fractures noted. No significant signs of arthritis noted. Right foot xray (03/07/25): FINDINGS: There is a mild dislocation of the PIP joint of the fifth digit. No definite fracture is noted. Otherwise, no additional dislocation or fracture identified. There is normal alignment. Joint spaces are preserved. Normal plantar arch. Normal soft tissues. IMPRESSION: Mild dislocation of the PIP joint of the fifth digit. No definite fracture evident. Right toe xray (03/07/25): FINDINGS: There is coalition of the middle and distal phalanx of the fifth digit. There is mild asymmetry of the joint with lateral narrowing. No dislocation is identified. No fracture is seen. IMPRESSION: Mild asymmetry of the IP joint of the fifth digit, no dislocation. Assessment & Plan Assessment & Plan (1) Toe pain, right: Code(s): M79.674 - Pain in right toe(s) Category: Medical (2) Injury of right toe: Code(s): S99.921A - Unspecified injury of right foot, initial encounter Category: Medical Qualifiers: Encounter type: initial encounter Qualified Code(s): S99.921A - Unspecified injury of right foot, initial encounter (3) Dislocation of fifth toe, right, closed: Code(s): S93.104A - Unspecified dislocation of right toe(s), initial encounter Category: Medical Qualifiers: Encounter type: initial encounter Qualified Code(s): S93.104A - Unspecified dislocation of right toe(s), initial encounter Plan Patient was informed and verbally consented to the use of an ambient scribe for clinic note documentation during this visit. I discussed with the patient the nature of her toe dislocation, emphasizing that while the bone was not fractured, the shift in alignment could lead to recurrence. We reviewed the importance of wearing supportive footwear and the option of aurora splinting the toes as needed to prevent further shifting. I advised her to monitor for any increase in pain or recurrence of symptoms and to contact us if needed. 1. Right 5th toe dislocation: - Advise wearing supportive footwear to prevent further dislocation. - Recommend budding splinting the affected toe to an adjacent toe if pain increases. - Suggest using cushioning inserts in shoes to reduce pressure while walking. - Monitor for increased pain or recurrence of dislocation and return for evaluation if symptoms worsen. - Patient may be weight-bearing as tolerated to the right foot in a supportive shoe gear. - Continue RICE protocol prn. Patient may follow up in the office as needed. Coding Level of Care Code New Pt Level 4 (05246) Diagnoses Toe pain, right M79.674 Injury of toe on right foot, initial encounter S99.921A Encounter type: initial encounter Closed dislocation of fifth toe of right foot, initial encounter S93.104A Encounter type: initial encounter Time Spent (min) 45
== END 2025-04-29 13:37 | disposition home or self-care (01) ==
LOC: HO.HPODS 13:06
PROVIDERS: PCP Internal Medicine; Visit Provider Student in an Organized Health Care Education/Training Program
DX: M79.674 Pain in right toe(s) (principal); S99.921A Unspecified injury of right foot, initial encounter; S93.104A Unspecified dislocation of right toe(s), initial encounter
CPT/HCPCS: 99204

== ENCOUNTER → 2025-04-29 13:06 | Outpatient (BNVA) | payer OTHER, SELFPAY | PROVIDERS: PCP Internal Medicine; Visit Provider Student in an Organized Health Care Education/Training Program | DX: S93.104A Unspecified dislocation of right toe(s), initial encounter (principal); M79.674 Pain in right toe(s); W19.XXXA Unspecified fall, initial encounter; Y93.A1 Activity, exercise machines primarily for cardiorespiratory conditioning; Y92.9 Unspecified place or not applicable; Y99.9 Unspecified external cause status | CPT/HCPCS: 99202 ==

== ENCOUNTER 2025-05-06 09:44 | Outpatient (REF) | payer OTHER, SELFPAY ==
--- NOTE | ~2025-05-06 | FL_ITS ---
EXAMINATION: XR BARIUM SWALLOW CLINICAL INFORMATION: Abdominal pain difficulty swallowing solids. COMPARISON: None available. TECHNIQUE: Barium swallow with thick barium and saltine crackers was done in upright view. Thin barium was administered in prone lying position. FINDINGS: Following oral administration of thick barium in upright view and several different projections there is normal propagation bolus from the oral cavity through the pharynx into esophagus without any evidence of obstruction, narrowing or stricture. On oral administration of saltine crackers coated with barium there is normal oral mastication with propagation of bolus from the oral cavity through the pharynx, esophagus into stomach without obstruction or narrowing. There is no intraluminal filling defect or extrinsic compression. On placing patient prone lying and oral administration of thin barium there is good distention of entire esophagus without intraluminal filling defect or external compression. No laryngeal penetration or aspiration seen. On placing patient supine there is small sliding hiatal hernia with large gastroesophageal reflux. FLUOROSCOPY TIME: 2 minutes 29 seconds DOSE AREA PRODUCT: 44.81 uGy-m2 (microgray-meter squared) FL/FL barium swallow IMPRESSION: Large gastroesophageal reflux with a small to moderate size hiatal hernia. Electronically signed by: Hussein Benoit MD 05/06/2025 12:55 PM EDT
== END 2025-05-06 09:45 | disposition home or self-care (01) ==
LOC: HO.XRAY 09:44
PROVIDERS: PCP Internal Medicine; Visit Provider Internal Medicine
DX: R10.9 Unspecified abdominal pain (principal); K21.9 Gastro-esophageal reflux disease without esophagitis
CPT/HCPCS: 74220

== ENCOUNTER → 2025-05-06 09:49 | Outpatient (BNV) | payer OTHER, SELFPAY | PROVIDERS: PCP Internal Medicine; Visit Provider Radiology Diagnostic Radiology | DX: R13.10 Dysphagia, unspecified (principal); R10.9 Unspecified abdominal pain | CPT/HCPCS: 74221 ==